=== PATIENT | female | born 1960 | race Caucasian/White ===

== ENCOUNTER 2019-08-09 00:18 | Day surgery (SDC) | payer BC, SELFPAY ==
[2019-07-27 10:06] VITALS: BMI 35.2
[2019-08-09] VITALS (7 sets, daily range): BP systolic 116–145; BP diastolic 65–92; PULSE 62–76; RESP 12–19; TEMP 36.4–36.5; O2SAT 94–99
--- NOTE | ~2019-08-09 | MM_ITS ---
EXAMINATION: MM needle loc LT, MM surgical specimen LT, MM needle loc LT ea add DATE: 08/09/2019 09:01 (accession [id number]), 08/09/2019 11:29 (accession [id number]), 07/23 09:27 (accession [id number]) INDICATION: Left breast cancer TECHNIQUE: The procedure for a mammography-guided needle localization was discussed with the patient. Risks and benefits were detailed including risks of bleeding and infection. The patient verbalized u nderstanding and agreed to proceed. A time out was performed to verify the patient's name, date of , and site of procedure. The biop sy marker appears to be slightly posterior and medial to the mammographic mass. Therefore two adjacen t localization wires were placed, one adjacent to the biopsy marker in one adjacent to a small mass. The patient was placed in craniocaudal compression, and the skin overlying the upper left breast was prepared in usual fashion. The skin and subcutaneous soft tissues were infiltrated with 1% lidocaine for local anesthesia. Utilizing mammography guidance, a needle was advanced into the left breast wit hin the mass and adjacent to the biopsy marker. Two confirmatory films were obtained. The patient kimberly erated procedure without immediate complication. A specimen radiograph was performed. FINDINGS: Two view confirmatory films of the left breast demonstrate a needle with tip adjacent to bi opsy marker and the left breast mass. The biopsy marker and wires are contained within the surgical s pecimen. IMPRESSION: 1. Successful mammography-guided left breast needle localization. Reviewed, dictated and finalized at location A. LE GREETER IMPRESSION: 1. Successful mammography-guided left breast needle localization. IMPRESSION: 1. Successful mammography-guided left breast needle localization.
--- NOTE | ~2019-08-09 | NM_ITS ---
EXAMINATION: NM sentinel node inject only INDICATION: Left breast cancer TECHNIQUE: 1.1 mCi Tc 99m Lymphoseek were injected in 4 aliquots in the upper outer quadrant of the b reast near the areola. No images were obtained. IMPRESSION: 1. Status post left breast sentinel lymph node radiopharmaceutical injection. Reviewed, dictated and finalized at location A. CAL FEE CLERK
--- NOTE | 2019-08-09 07:05 | WPDHPUPDATE1 ---
History and Physical Update Update Date/Time: 08/09/19 07:05 History and Physical has been reviewed, including an updated exam of the patient. There are NO changes in the patient's condition. Risks, benefits, and alternatives have been discussed and questions answered. Patient agrees to proceed with procedure.
[2019-08-09] MEDS: LACTATED RINGERS 1,000 ML 30 ML IV CONT ×2 (09:05→11:56)
--- NOTE | 2019-08-09 09:05 | WPDANESEPPF ---
Anes - Initial Pre Proc Eval Procedure: Operation Date: 08/09/19 09:30 Proposed Procedures p Mammogram And/Or Ultrasound Guided Needle Localization Left Breast Lumpectomy, With Left Axillary [place] Lymph Node Biopsy - Daryn Galindo MD Date/Time: 08/09/19 09:05 Surgeon: Daryn Galindo MD Pre Op Diagnosis: Left Breast Ca Patient Data Age: 58 Gender: F Height: 5 ft 4 in Weight: 90.3 kg Allergies Allergy/AdvReac Type Severity Reaction Status Date / Time No Known Allergies Allergy Verified 07/27/19 10:08 Home Medications Medication Instructions Recorded Confirmed Type ascorbic dcjz-mjwbxima-xwl 1,000 mg PO DAILY 07/27/19 08/09/19 History [Emergen-C] hmoflcqxqudn-zzpd-lkrix acid 1 tablet PO DAILY 08/09/19 08/09/19 History [Centrum Women] Patient hx anesthesia problems: none Family hx anesthesia problems: none PMFSH Surgical History Surgical History History of colonoscopy History of gastric bypass History of removal of cyst ovarian 08/20/98 Status post biopsy of kidney Family History Family History Mother Hypertension Diabetes mellitus Heart disease Sibling Chemical dependency Social History Social History Smoking status: Never smoker Substance use: current Anes - Eval Final PreProcedure Day of Procedure 08/09/19 09:05 Patient weight: obese Heart: regular rate and rhythm Lungs: clear to auscultation Airway: Mallampati scale class II Neurological: alert and oriented Last oral intake: >/= 8 hours ASA classification: III Emergent: no Anesthetic plan: proceed Anesthesia type and monitoring: general LMA and standard monitoring Informed Consent: The patient's anesthetic plan and its attendant risks and benefits were discussed with the patient/family/POA. Questions were solicited and answers provided to the satisfaction of the patient/family/POA.
[2019-08-09] MEDS: ceFAZolin 2 GM/D5W 50 ML 2 GM/50 ML BAG IVPB (09:17)
[2019-08-09] MEDS: ISOSULFAN BLUE 1% INJ 5 ML VIAL SUB-Q (09:43)
[2019-08-09] MEDS: KETOROLAC 30 MG/ML VIAL (*BKC) IV PUSH (11:34)
--- NOTE | 2019-08-09 11:45 | PM.PROC ---
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 She also had injection of radioisotope for sentinel lymph node biopsy. She was taken to surgery and and induced into general anesthesia. The left breast, axilla and arm were prepped and draped such that the arm was mobile and in the field. Care was taken to avoid any displacement of localizing wires. Isosulfan Blue dye was infiltrated under the nipple. Gentle breast massage was carried out. Using the navigator, an area of high isotope emission in the left axilla was found. This was marked on the skin. A hairline lower axillary incision was then made. Dissection through the subcutaneous fat and into the axillary contents was carried out with the cautery. We then rechecked with the navigator and found the area where the isotope emission was coming. Dissection in that direction allowed us to find sentinel lymph node #1. This lymph node had high isotope emission as well as being stained with the Isosulfan Blue dye. It was dissected free from surrounding vascular and lymphatic structures. Clips and cautery were used. The specimen was sent to pathology fresh labeled sentinel lymph node 1. In a similar fashion, we found and dissected two other sentinel lymph nodes. During the dissection of sentinel lymph node #2, another small lymph node was removed. It did not have high isotope emission. Neither sentinel lymph node #2 or #3 had blue dye staining. They were nonetheless sent as sentinel lymph nodes due to their high isotope emission. The additional lymph node found with sentinel lymph node #2 was sent as an additional axillary lymph node, not a sentinel node. None of the lymph nodes were particularly enlarged. We then checked the axillary wound and achieved good hemostasis. The wound was closed in layers with interrupted 3 0 Monocryl skin suture. A subcuticular interrupted 3 0 Monocryl skin stitch was placed. The skin was then closed with a running 4 0 Monocryl skin suture. The axilla was then quarantined with some towels. We turned our attention to the left breast. The proposed incision was marked in a rather transverse orientation above the nipple but below the exit of both localizing wires. Incision was made and dissection through the superficial subcutaneous was carried out. I noticed a firm area about 1 cm deep that was suspicious for the tumor or at least a desmoplastic reaction associated with the tumor. I dissected above this and dissected up to the localizing wire. The wire to the tumor was pulled through the skin and out the wound. Similarly, I dissected to the more medially placed wire that localized the metallic clip. It was likewise pulled through the skin and brought out the wound. From there I was able to complete the lumpectomy, dissecting all around the area suspicious for the tumor. After I removed the lumpectomy specimen, I kept it oriented so that we could place suture of different color to orient the breast tissue for the pathologist. The specimen mammogram I reviewed personally and did appear to contain both the clip and the tumor. After the lumpectomy specimen was sent, I did go ahead and remove more breast tissue for additional margins. The medial and deep margins appeared to be quite adequate from the initial lumpectomy. I did re-excise the superficial, cephalad, caudal, and lateral margins to hopefully achieve a successful lumpectomy with clear margins. All these re-excision margin specimens were sent labeled appropriately to the pathologist. The breast wound was then inspected and made meticulously hemostatic with the cautery. This wo
== END 2019-08-09 13:45 | disposition home or self-care (01) ==
PROVIDERS: PCP Internal Medicine; Visit Provider Surgery
PROC: (CPT 19301; principal; 2019-08-09 09:30)
DX: C50.212 Malignant neoplasm of upper-inner quadrant of left female breast (principal); Z98.84 Bariatric surgery status
CPT/HCPCS: 19301; 38525; 19281; 19282; 38792; 76098; 88305; 88307; A9520; C1713; C1769; J0131; J0690; J1100; J1170; J1885; J2250; J2405; J2704; J3010; J7120

== ENCOUNTER 2019-12-02 09:42 | Outpatient (CLI) | payer BC, SELFPAY ==
[2019-12-02 09:58] LABS: Basophils Percent Auto 0.8 % (0.2-1.2); Eosinophils Absolute Auto 0.1 K/mm3 (0-0.3); Eosinophils Percent Auto 1.8 % (0-4.4); Hematocrit 42.5 % (37.0-47.0); Hemoglobin 13.8 g/dL (12.0-15.0); Immature Granulocyte Absolute 0.02 K/mm3 (0.00-0.031); Immature Granulocyte Percent A 0.4 % (0-0.5); Lymphocytes Absolute Auto 1.41 K/mm3 (0.9-3.2); Lymphocytes Percent Auto 28.2 % (18.3-44.2); Mean Corpuscular HGB Conc 32.5 g/dl (32-36); Mean Corpuscular Hemoglobin 30.8 pg (26-34); Mean Corpuscular Volume 94.9 fl (80-100); Mean Platelet Volume 9.7 fl (7.4-10.4); Monocytes Absolute Auto 0.5 K/mm3 (0.1-0.6); Neutrophils Absolute Auto 2.9 K/mm3 (1.3-6.7); Neutrophils Percent Auto 58.8 % (45.5-73.1); Platelet Count Result 263 k/mm3 (150-375); Red Blood Count 4.48 M/mm3 (4.2-5.4); Red Cell Distribution Width 13.9 % (11.5-14.5)
[2019-12-02 10:07] LABS: Blood Urea Nitrogen 11 mg/dL (8-26); Carbon Dioxide 26 mmol/L (22-30); Chloride 102 mmol/L (98-109); Estimated Glomerular Filt Rate > 60; Glucose 90 mg/dL (70-105); Sodium 140 mmol/L (138-146)
[2019-12-02 10:50] LABS: Alanine Aminotransferase 22 U/L (4-35); Albumin Level 4.4 g/dL (3.5-5.1); Alkaline Phosphatase 58 U/L (38-126); Aspartate Amino Transferase 27 U/L (14-36); Bilirubin,Total 0.4 mg/dL (0.2-1.3); Blood Urea Nitrogen 12 mg/dL (7-17); Calcium 9.3 mg/dL (8.4-10.2); Carbon Dioxide 27 mmol/L (22-30); Chloride 103 mmol/L (98-107); Estimated Glomerular Filt Rate > 60; Glucose 90 mg/dL (65-105); Potassium 4.4 mmol/L (3.4-5.0); Sodium 137 mmol/L (137-145)
== END 2019-12-02 09:43 | disposition home or self-care (01) ==
LOC: ANHLAB 09:45
PROVIDERS: PCP Internal Medicine; Visit Provider Internal Medicine Hematology & Oncology
DX: C50.412 Malignant neoplasm of upper-outer quadrant of left female breast (principal); Z17.0 Estrogen receptor positive status [ER+]
CPT/HCPCS: 36415; 80048; 80053; 85025

== ENCOUNTER 2020-02-14 08:21 | Outpatient (CLI) | payer BC, SELFPAY ==
[2020-02-14 08:41] LABS: Basophils Absolute Auto 0.1 K/mm3 (0.0-0.1); Eosinophils Absolute Auto 0.1 K/mm3 (0-0.3); Eosinophils Percent Auto 1.4 % (0-4.4); Hematocrit 40.4 % (37.0-47.0); Hemoglobin 13.2 g/dL (12.0-15.0); Immature Granulocyte Absolute 0.03 K/mm3 (0.00-0.031); Immature Granulocyte Percent A 0.6 % (0-0.5); Lymphocytes Absolute Auto 1.15 K/mm3 (0.9-3.2); Lymphocytes Percent Auto 23.7 % (18.3-44.2); Mean Corpuscular HGB Conc 32.7 g/dl (32-36); Mean Corpuscular Hemoglobin 30.5 pg (26-34); Mean Corpuscular Volume 93.3 fl (80-100); Mean Platelet Volume 10.2 fl (7.4-10.4); Monocytes Absolute Auto 0.6 K/mm3 (0.1-0.6); Monocytes Percent Auto 13.2 % (2.6-8.5); Neutrophils Absolute Auto 2.9 K/mm3 (1.3-6.7); Neutrophils Percent Auto 60.1 % (45.5-73.1); Platelet Count Result 254 k/mm3 (150-375); Red Blood Count 4.33 M/mm3 (4.2-5.4); Red Cell Distribution Width 13.5 % (11.5-14.5); White Blood Count 4.9 K/mm3 (4.5-10.0)
[2020-02-14 11:55] LABS: Alanine Aminotransferase 24 U/L (4-35); Albumin Level 4.1 g/dL (3.5-5.1); Alkaline Phosphatase 61 U/L (38-126); Anion Gap 7 mmol/L (8-16); Aspartate Amino Transferase 28 U/L (14-36); Bilirubin,Total 0.4 mg/dL (0.2-1.3); Blood Urea Nitrogen 14 mg/dL (7-17); Calcium 9.4 mg/dL (8.4-10.2); Carbon Dioxide 28 mmol/L (22-30); Chloride 103 mmol/L (98-107); Estimated Glomerular Filt Rate > 60; Glucose 101 mg/dL (65-105); Potassium 4.1 mmol/L (3.4-5.0); Sodium 138 mmol/L (137-145)
[2020-02-17 13:42] LABS: CA 27.29 <8 U/mL (<38)
== END 2020-02-14 08:22 | disposition home or self-care (01) ==
LOC: ANHLAB 08:22
PROVIDERS: PCP Internal Medicine; Visit Provider Internal Medicine Hematology & Oncology
DX: C50.412 Malignant neoplasm of upper-outer quadrant of left female breast (principal); Z17.0 Estrogen receptor positive status [ER+]
CPT/HCPCS: 36415; 80053; 85025; 86300

== ENCOUNTER 2020-05-29 14:02 | Outpatient (CLI) | payer BC, SELFPAY ==
[2020-05-29 14:15] LABS: Basophils Percent Auto 0.7 % (0.2-1.2); Eosinophils Absolute Auto 0.1 K/mm3 (0-0.3); Eosinophils Percent Auto 1.7 % (0-4.4); Hematocrit 41.7 % (37.0-47.0); Hemoglobin 13.4 g/dL (12.0-15.0); Immature Granulocyte Absolute 0.02 K/mm3 (0.00-0.031); Immature Granulocyte Percent A 0.3 % (0-0.5); Lymphocytes Absolute Auto 1.34 K/mm3 (0.9-3.2); Lymphocytes Percent Auto 22.4 % (18.3-44.2); Mean Corpuscular HGB Conc 32.1 g/dl (32-36); Mean Corpuscular Hemoglobin 30.5 pg (26-34); Mean Corpuscular Volume 94.8 fl (80-100); Mean Platelet Volume 9.9 fl (7.4-10.4); Monocytes Absolute Auto 0.7 K/mm3 (0.1-0.6); Neutrophils Absolute Auto 3.8 K/mm3 (1.3-6.7); Neutrophils Percent Auto 62.9 % (45.5-73.1); Platelet Count Result 243 k/mm3 (150-375)
[2020-05-29 17:07] LABS: Alanine Aminotransferase 28 U/L (4-35); Albumin Level 4.3 g/dL (3.5-5.1); Alkaline Phosphatase 59 U/L (38-126); Anion Gap 8 mmol/L (8-16); Aspartate Amino Transferase 33 U/L (14-36); Bilirubin,Total 0.4 mg/dL (0.2-1.3); Blood Urea Nitrogen 13 mg/dL (7-17); Calcium 9.7 mg/dL (8.4-10.2); Carbon Dioxide 31 mmol/L (22-30); Chloride 98 mmol/L (98-107); Estimated Glomerular Filt Rate > 60; Glucose 97 mg/dL (65-105); Potassium 4.3 mmol/L (3.4-5.0); Sodium 137 mmol/L (137-145)
[2020-06-01 14:33] LABS: CA 15-3 <1 U/mL (<32)
== END 2020-05-29 14:03 | disposition home or self-care (01) ==
LOC: ANHLAB 14:04
PROVIDERS: PCP Internal Medicine; Visit Provider Internal Medicine Hematology & Oncology
DX: C50.412 Malignant neoplasm of upper-outer quadrant of left female breast (principal); Z17.0 Estrogen receptor positive status [ER+]
CPT/HCPCS: 36415; 80053; 85025; 86300

== ENCOUNTER 2020-06-01 12:44 | Outpatient (CLI) | payer BC, SELFPAY ==
--- NOTE | ~2020-06-01 | DEXA_ITS ---
Bone Density Report Name: Valentine Quinn Age: 59 Sex: Female Ethnicity: White Date of : 1960 Indication: postmenopausal; cancer; Referring Provider: Mike Jang Study: Bone densitometry was performed. Exam Date: June 01, 2020 Accession number: [id number] Bone Density: Region BMD T-score Z-score Classification AP Spine (L1-L4) 1.224 1.6 2.9 Normal Femoral Neck (Left) 0.734 -1.0 0.2 Normal Total Hip (Left) 0.989 0.4 1.3 Normal Total Hip Bilateral Avg 0.979 0.3 1.2 Normal Femoral Neck (Right) 0.716 -1.2 0.0 Osteopenia Total Hip (Right) 0.967 0.2 1.1 Normal World Health Organization criteria for BMD impression classify patients as: Normal (T-score at or above -1.0), Osteopenia (T-score between -1.0 and -2.5), or Osteoporosis (T-score at or below -2.5). 10-year Fracture Risk(1): Major Osteoporotic Fracture 6.5% Hip Fracture 0.4% Reported Risk Factors: [place] (), Neck BMD=0.716, BMI=34.7 (1) FRAX(R) Version 3.08. Fracture probability calculated for an untreated patient. Fracture probability may be lower if the patient has received treatment. Clinical Information Provided by Patient: Has used the following medications: Calcium Has the following medical conditions: Cancer Patient maximum height was 64 Menopause Age: 51 No regular weight bearing exercise Drinks caffeinated beverages Onset of menses at age 14 Number of children 0 Impression: The patient has low bone mass, based on the Right Femoral Neck T-score. The patient has an estimated ten-year risk of hip fracture of 0.4% and an estimated ten-year risk of major fracture of 6.5%, based on the WHO FRAX algorithm. Discussion: BONE DENSITY IS LOW AT ONE OR MORE SKELETAL SITES. This patient's lowest T-score is low at one or more skeletal sites. It meets the World Health Organization's (WHO) criteria for ?low bone mass? (T-score between -1.0 and -2.5). The patient's 10-year risk of fracture as calculated by FRAX is less than the threshold where pharmacological therapy is recommended by the National Osteoporosis Foundation (NOF). However, all treatment decisions require clinical judgment and consideration of individual patient factors, including patient preferences, comorbidities, previous drug use, risk factors not captured in the FRAX model (e.g., frailty, falls, vitamin D deficiency, increased bone turnover, interval significant decline in bone density) and possible under or overestimation of fracture risk by FRAX. The patient should follow a healthful lifestyle (good nutrition with adequate calcium and vitamin D, and appropriate weight-bearing exercise). Follow-Up: Consider repeating this study in 2 to 3 years to reassess this patient's status, or sooner if there is some new clinical indication. Reported by: MIKE on
--- NOTE | ~2020-06-01 | MMUS_ITS ---
EXAMINATION: MM diagnostic red BI w estephania, US breast LT complete HISTORY: History of left breast cancer status post surgery and radiation therapy TECHNIQUE: Additional 3-D tomosynthesis images of the breasts were performed and synthetic 2-D images were generated. CAD analysis was submitted and interpreted. High resolution left breast ultrasound w as performed. COMPARISON: Comparison to multiple prior studies sequentially, with oldest reviewed study dated 03/22. BREAST PARENCHYMAL COMPOSITION: Breast composed of scattered areas of fibroglandular density. FINDINGS: MAMMOGRAPHIC FINDINGS: The right breast is stable without evidence for malignancy. There is focal asymmetry central aspect o f the left breast with spiculation which has developed since previous lumpectomy. Left breast ultrasound: In the area of surgical scar at 11-12:00 position there is an irregular shape d hypoechoic mass measuring 1.9 x 1.6 x 1.9 cm with posterior shadowing. No other masses are identifi ed. IMPRESSION: 1. Abnormal spiculated mass corresponding hypoechoic abnormality by ultrasound measuring up to 1.9 cm , most likely postsurgical/radiation therapy change. 2. Recommend 6 month follow-up diagnostic left mammogram with possible additional ultrasound BI-RADS category 3, probably benign findings. Reviewed, dictated and finalized at location A. OLOGY TEACHER IMPRESSION: 1. Abnormal spiculated mass corresponding hypoechoic abnormality by ultrasound measuring up to 1.9 cm, most likely postsurgical/radiation therapy change. 2. Recommend 6 month follow-up diagnostic left mammogram with possible addition al ultrasound BI-RADS category 3, probably benign findings.
== END 2020-06-01 12:45 | disposition home or self-care (01) ==
PROVIDERS: PCP Internal Medicine; Visit Provider Internal Medicine Hematology & Oncology
DX: C50.412 Malignant neoplasm of upper-outer quadrant of left female breast (principal); M85.851 Other specified disorders of bone density and structure, right thigh; Z17.0 Estrogen receptor positive status [ER+]; N63.22 Unspecified lump in the left breast, upper inner quadrant
CPT/HCPCS: 76641; 77062; 77066; 77080; G0279

== ENCOUNTER 2020-08-22 08:46 | Outpatient (CLI) | payer BC, SELFPAY ==
[2020-08-22 09:02] LABS: Basophils Absolute Auto 0.1 K/mm3 (0.0-0.1); Basophils Percent Auto 1.1 % (0.2-1.2); Eosinophils Absolute Auto 0.1 K/mm3 (0-0.3); Eosinophils Percent Auto 1.8 % (0-4.4); Hematocrit 41.9 % (37.0-47.0); Hemoglobin 13.8 g/dL (12.0-15.0); Immature Granulocyte Absolute 0.05 K/mm3 (0.00-0.031); Immature Granulocyte Percent A 0.9 % (0-0.5); Lymphocytes Absolute Auto 1.64 K/mm3 (0.9-3.2); Lymphocytes Percent Auto 29.9 % (18.3-44.2); Mean Corpuscular HGB Conc 32.9 g/dl (32-36); Mean Corpuscular Hemoglobin 31.1 pg (26-34); Mean Corpuscular Volume 94.4 fl (80-100); Mean Platelet Volume 10.2 fl (7.4-10.4); Monocytes Absolute Auto 0.6 K/mm3 (0.1-0.6); Monocytes Percent Auto 11.5 % (2.6-8.5); Neutrophils Percent Auto 54.8 % (45.5-73.1); Platelet Count Result 268 k/mm3 (150-375); Red Blood Count 4.44 M/mm3 (4.2-5.4); Red Cell Distribution Width 13.2 % (11.5-14.5); White Blood Count 5.5 K/mm3 (4.5-10.0)
[2020-08-22 12:15] LABS: Alanine Aminotransferase 22 U/L (4-35); Albumin Level 4.3 g/dL (3.5-5.1); Alkaline Phosphatase 61 U/L (38-126); Anion Gap 9 mmol/L (8-16); Aspartate Amino Transferase 30 U/L (14-36); Bilirubin,Total 0.4 mg/dL (0.2-1.3); Blood Urea Nitrogen 16 mg/dL (7-17); Calcium 9.4 mg/dL (8.4-10.2); Carbon Dioxide 30 mmol/L (22-30); Chloride 101 mmol/L (98-107); Estimated Glomerular Filt Rate > 60; Glucose 101 mg/dL (65-105); Potassium 4.7 mmol/L (3.4-5.0); Sodium 140 mmol/L (137-145)
[2020-08-25 07:29] LABS: CA 15-3 3 U/mL (<32)
== END 2020-08-22 08:47 | disposition home or self-care (01) ==
LOC: ANHLAB 08:48
PROVIDERS: PCP Internal Medicine; Visit Provider Internal Medicine Hematology & Oncology
DX: C50.412 Malignant neoplasm of upper-outer quadrant of left female breast (principal); Z17.0 Estrogen receptor positive status [ER+]
CPT/HCPCS: 36415; 80053; 85025; 86300

== ENCOUNTER 2020-09-13 07:43 | Outpatient (CLI) | payer BC, SELFPAY ==
--- NOTE | ~2020-09-13 | CT_ITS ---
EXAMINATION: CT soft tissue neck chest w EXAM DATE: 09/13/2020 08:35 INDICATION: Lymphadenopathy of head and neck. TECHNIQUE: Spiral CT of the neck and chest was performed following intravenous injection of 75 mL Omn ipaque 350. Axial, coronal and sagittal images of the neck were reviewed. Axial, coronal and sagitt al images of the chest were reviewed. Coronal maximum intensity pixel images of chest reviewed. The dose-length product (DLP) for this examination was 971.33 mGy-cm. The exposure was tailored accordi ng to patient size (auto mA exposure control), and iterative reconstruction (ASIR) was used as additi onal dose reduction technique. There is no prior study for comparison. FINDINGS: NECK: The thyroid gland is unremarkable. The submandibular and parotid glands are symmetric. Severa l small lymph nodes left posterior cervical triangle well within normal size limits. There is no cerv ical lymphadenopathy. There are no masses identified. The airway is unremarkable. Parapharyngea l and pre-glottic fat planes are preserved. The opacified vasculature is patent. The orbits are u nremarkable. Visualized sinuses and mastoid air cells are well aerated. There is cervical spondyl osis. CHEST: There is a spiculated masslike region in the left breast measuring about 2.5 cm. Reportedly donna salinas did have left breast cancer. There is no biopsy marker identified within this. There are left a xillary surgical clips. Ascending aorta is upper limits of normal in caliber. The lungs are clear. There are no pleural or pericardial effusions. Tracheobronchial tree is patent. There is no media stinal, hilar or axillary lymphadenopathy. There is no pneumothorax. Borderline cardiomegaly. Th ere is mild coronary arterial calcification, arterial sclerosis. Surgical changes of gastric bypass. There is mild thoracic spondylosis without osteoblastic or osteolytic lesions identified. IMPRESSION: 1. Spiculated left breast mass suspicious for cancer, or possibly scarring. Should be correlated wit h repeat mammography. 2. No axillary, internal mammary, cervical or mediastinal lymphadenopathy. Reviewed, dictated and finalized at location A. IMPRESSION: 1. Spiculated left breast mass suspicious for cancer, or possibly scarring. Sh ould be correlated with repeat mammography. 2. No axillary, internal mammary, cervical or mediastinal lymphadenopathy.
== END 2020-09-13 07:44 | disposition home or self-care (01) ==
LOC: ANHIMG 07:45
PROVIDERS: PCP Internal Medicine; Visit Provider Internal Medicine Hematology & Oncology
DX: R59.1 Generalized enlarged lymph nodes (principal); M47.814 Spondylosis without myelopathy or radiculopathy, thoracic region; I70.90 Unspecified atherosclerosis; I25.10 Atherosclerotic heart disease of native coronary artery without angina pectoris
CPT/HCPCS: 70491; 71260; Q9967

== ENCOUNTER 2020-10-12 11:42 | Outpatient (CLI) | payer BC, SELFPAY ==
--- NOTE | ~2020-10-12 | MMUS_ITS ---
EXAMINATION: MM diagnostic red BI w estephania, US breast LT limited HISTORY: Patient with history of left breast cancer presents for evaluation of a possible left breast mass seen on CT TECHNIQUE: Craniocaudal, mediolateral, and mediolateral oblique 3-D tomosynthesis images of the breas ts were performed and synthetic 2-D images were generated. CAD analysis was submitted and interpreted . High resolution limited left breast ultrasound was performed. COMPARISON: 09/13/2020, 06/01/2020, 05/31/2019, 05/09/2019, 04/02/2018 BREAST PARENCHYMAL COMPOSITION: There are scattered areas of fibroglandular density. FINDINGS: MAMMOGRAPHIC FINDINGS: Left breast: There is stable architectural distortion in the upper left breast at the site of prior l umpectomy. No suspicious interval change is identified. There is no suspicious calcification. Right breast: There is no evidence of suspicious mass, calcification, or architectural distortion to suggest malignancy. There has been no suspicious interval change. ULTRASOUND: There is stable sonographic changes in the left breast reflecting patient's lumpectomy. No suspicious interval change is identified. IMPRESSION: 1. Stable left breast findings most consistent with treatment for left breast cancer. No mammographic evidence of malignancy in the right breast. 2. Recommend 6 month follow-up left diagnostic mammogram and possible ultrasound and routine screenin g mammography of the right breast. BI-RADS category 3, probably benign findings. Reviewed, dictated and finalized at location A. IMPRESSION: 1. Stable left breast findings most consistent with treatment for left breast c ancer. No mammographic evidence of malignancy in the right breast. 2. Recommend 6 month follow-up left diagnostic mammogram and possible ultrasoun d and routine screening mammography of the right breast. BI-RADS category 3, probably benign findings.
== END 2020-10-12 11:43 | disposition home or self-care (01) ==
LOC: ANHIMG 11:49
PROVIDERS: PCP Internal Medicine; Visit Provider Internal Medicine Hematology & Oncology
DX: C50.412 Malignant neoplasm of upper-outer quadrant of left female breast (principal); Z17.0 Estrogen receptor positive status [ER+]; R92.8 Other abnormal and inconclusive findings on diagnostic imaging of breast
CPT/HCPCS: 76642; 77062; 77066; G0279

== ENCOUNTER 2020-11-23 11:02 | Outpatient (CLI) | payer BC, SELFPAY ==
[2020-11-23 11:26] LABS: Basophils Percent Auto 0.6 % (0.2-1.2); Eosinophils Absolute Auto 0.2 K/mm3 (0-0.3); Eosinophils Percent Auto 2.4 % (0-4.4); Hematocrit 42.8 % (37.0-47.0); Hemoglobin 13.8 g/dL (12.0-15.0); Immature Granulocyte Absolute 0.04 K/mm3 (0.00-0.031); Immature Granulocyte Percent A 0.6 % (0-0.5); Lymphocytes Absolute Auto 1.26 K/mm3 (0.9-3.2); Lymphocytes Percent Auto 17.9 % (18.3-44.2); Mean Corpuscular HGB Conc 32.2 g/dl (32-36); Mean Corpuscular Hemoglobin 30.5 pg (26-34); Mean Corpuscular Volume 94.7 fl (80-100); Monocytes Absolute Auto 0.7 K/mm3 (0.1-0.6); Monocytes Percent Auto 10.1 % (2.6-8.5); Neutrophils Absolute Auto 4.8 K/mm3 (1.3-6.7); Neutrophils Percent Auto 68.4 % (45.5-73.1); Platelet Count Result 242 k/mm3 (150-375); Red Blood Count 4.52 M/mm3 (4.2-5.4); Red Cell Distribution Width 14.2 % (11.5-14.5); White Blood Count 7.1 K/mm3 (4.5-10.0)
[2020-11-23 12:23] LABS: Alanine Aminotransferase 26 U/L (4-35); Albumin Level 4.2 g/dL (3.5-5.1); Alkaline Phosphatase 68 U/L (38-126); Anion Gap 9 mmol/L (8-16); Aspartate Amino Transferase 29 U/L (14-36); Bilirubin,Total 0.6 mg/dL (0.2-1.3); Blood Urea Nitrogen 21 mg/dL (7-17); Calcium 9.6 mg/dL (8.4-10.2); Carbon Dioxide 27 mmol/L (22-30); Chloride 102 mmol/L (98-107); Estimated Glomerular Filt Rate > 60; Glucose 97 mg/dL (65-105); Lactate Dehydrogenase 437 U/L (313-618); Potassium 4.5 mmol/L (3.4-5.0); Sodium 138 mmol/L (137-145)
[2020-11-25 22:31] LABS: CA 15-3 3 U/mL (<32)
== END 2020-11-23 11:03 | disposition home or self-care (01) ==
LOC: ANHLAB 11:11
PROVIDERS: PCP Internal Medicine; Visit Provider Internal Medicine Hematology & Oncology
DX: C50.412 Malignant neoplasm of upper-outer quadrant of left female breast (principal); Z17.0 Estrogen receptor positive status [ER+]
CPT/HCPCS: 36415; 80053; 83615; 85025; 86300

== ENCOUNTER 2021-03-15 09:06 | Outpatient (CLI) | payer BC, SELFPAY ==
[2021-03-15 09:20] LABS: Basophils Percent Auto 0.5 % (0.2-1.2); Eosinophils Absolute Auto 0.2 K/mm3 (0-0.3); Eosinophils Percent Auto 2.4 % (0-4.4); Hemoglobin 13.7 g/dL (12.0-15.0); Immature Granulocyte Absolute 0.08 K/mm3 (0.00-0.031); Immature Granulocyte Percent A 1.1 % (0-0.5); Lymphocytes Absolute Auto 1.54 K/mm3 (0.9-3.2); Lymphocytes Percent Auto 20.5 % (18.3-44.2); Mean Corpuscular HGB Conc 32.6 g/dl (32-36); Mean Corpuscular Hemoglobin 30.3 pg (26-34); Mean Corpuscular Volume 92.9 fl (80-100); Mean Platelet Volume 10.2 fl (7.4-10.4); Monocytes Absolute Auto 0.7 K/mm3 (0.1-0.6); Monocytes Percent Auto 9.7 % (2.6-8.5); Neutrophils Percent Auto 65.8 % (45.5-73.1); Platelet Count Result 306 k/mm3 (150-375); Red Blood Count 4.52 M/mm3 (4.2-5.4); Red Cell Distribution Width 13.3 % (11.5-14.5); White Blood Count 7.5 K/mm3 (4.5-10.0)
[2021-03-15 11:25] LABS: Alanine Aminotransferase 27 U/L (4-35); Albumin Level 4.7 g/dL (3.5-5.1); Alkaline Phosphatase 67 U/L (38-126); Anion Gap 8 mmol/L (8-16); Aspartate Amino Transferase 41 U/L (14-36); Bilirubin,Total 0.4 mg/dL (0.2-1.3); Blood Urea Nitrogen 18 mg/dL (7-17); Calcium 10.1 mg/dL (8.4-10.2); Carbon Dioxide 28 mmol/L (22-30); Chloride 102 mmol/L (98-107); Estimated Glomerular Filt Rate > 60; Glucose 107 mg/dL (65-110); Potassium 4.5 mmol/L (3.4-5.0); Sodium 138 mmol/L (137-145)
[2021-03-19 07:31] LABS: CA 15-3 4 U/mL (<32)
== END 2021-03-15 09:07 | disposition home or self-care (01) ==
LOC: ANHLAB 09:09
PROVIDERS: PCP Internal Medicine; Visit Provider Internal Medicine Hematology & Oncology
DX: C50.412 Malignant neoplasm of upper-outer quadrant of left female breast (principal); Z17.0 Estrogen receptor positive status [ER+]
CPT/HCPCS: 36415; 80053; 85025; 86300

== ENCOUNTER 2021-07-19 09:39 | Outpatient (CLI) | payer BC, SELFPAY ==
[2021-07-19 09:53] LABS: Basophils Absolute Auto 0.1 K/mm3 (0.0-0.1); Basophils Percent Auto 0.7 % (0.2-1.2); Eosinophils Absolute Auto 0.2 K/mm3 (0-0.3); Eosinophils Percent Auto 3.5 % (0-4.4); Hematocrit 43.4 % (37.0-47.0); Hemoglobin 13.5 g/dL (12.0-15.0); Immature Granulocyte Absolute 0.04 K/mm3 (0.00-0.031); Immature Granulocyte Percent A 0.6 % (0-0.5); Lymphocytes Absolute Auto 1.97 K/mm3 (0.9-3.2); Lymphocytes Percent Auto 28.8 % (18.3-44.2); Mean Corpuscular HGB Conc 31.1 g/dl (32-36); Mean Corpuscular Hemoglobin 29.6 pg (26-34); Mean Corpuscular Volume 95.2 fl (80-100); Mean Platelet Volume 9.9 fl (7.4-10.4); Monocytes Absolute Auto 0.8 K/mm3 (0.1-0.6); Monocytes Percent Auto 11.1 % (2.6-8.5); Neutrophils Absolute Auto 3.8 K/mm3 (1.3-6.7); Neutrophils Percent Auto 55.3 % (45.5-73.1); Platelet Count Result 318 k/mm3 (150-375); Red Blood Count 4.56 M/mm3 (4.2-5.4); White Blood Count 6.8 K/mm3 (4.5-10.0)
[2021-07-19 13:22] LABS: Alanine Aminotransferase 22 U/L (4-35); Albumin Level 4.3 g/dL (3.5-5.1); Alkaline Phosphatase 73 U/L (38-126); Anion Gap 3 mmol/L (8-16); Aspartate Amino Transferase 45 U/L (14-36); Bilirubin,Total 0.5 mg/dL (0.2-1.3); Blood Urea Nitrogen 15 mg/dL (7-17); Calcium 9.4 mg/dL (8.4-10.2); Carbon Dioxide 31 mmol/L (22-30); Chloride 102 mmol/L (98-107); Estimated Glomerular Filt Rate > 60; Glucose 103 mg/dL (65-110); Potassium 4.4 mmol/L (3.4-5.0); Sodium 136 mmol/L (137-145)
[2021-07-24 07:09] LABS: CA 15-3 5 U/mL (<32)
== END 2021-07-19 09:40 | disposition home or self-care (01) ==
LOC: ANHLAB 09:40
PROVIDERS: PCP Internal Medicine; Visit Provider Internal Medicine Hematology & Oncology
DX: C50.412 Malignant neoplasm of upper-outer quadrant of left female breast (principal); Z17.0 Estrogen receptor positive status [ER+]
CPT/HCPCS: 36415; 80053; 85025; 86300

== ENCOUNTER 2021-10-04 11:31 | Outpatient (CLI) | payer BC, SELFPAY ==
--- NOTE | ~2021-10-04 | MM_ITS ---
EXAMINATION: MM diagnostic red BI w estephania HISTORY: History of left breast cancer status post lumpectomy and radiation therapy in 2019 TECHNIQUE: Additional 3-D tomosynthesis images of the breasts were performed and synthetic 2-D images were generated. CAD analysis was submitted and interpreted. COMPARISON: Comparison to multiple prior studies sequentially, with oldest reviewed study dated 05/22. BREAST PARENCHYMAL COMPOSITION: There are scattered areas of fibroglandular density. FINDINGS: The breasts are stable. No significant change to spiculated left breast mass in the upper c entral aspect of the left breast posteriorly. No new masses, calcifications or architectural distorti on to suggest malignancy. IMPRESSION: 1. Stable bilateral mammogram. No significant change to spiculated left breast mass, consistent with previous lumpectomy/radiation therapy change. 2. Routine yearly screening mammogram and regular clinical breast examination are recommended. BI-RADS Category 2: Benign finding(s). Reviewed, dictated and finalized at location A. IMPRESSION: 1. Stable bilateral mammogram. No significant change to spiculated left breast mass, consistent with previous lumpectomy/radiation therapy change. 2. Routine yearly screening mammogram and regular clinical breast examination a re recommended. BI-RADS Category 2: Benign finding(s).
== END 2021-10-04 11:32 | disposition home or self-care (01) ==
LOC: ANHIMG 11:32
PROVIDERS: PCP Internal Medicine; Visit Provider Internal Medicine Hematology & Oncology
DX: C50.412 Malignant neoplasm of upper-outer quadrant of left female breast (principal); Z17.0 Estrogen receptor positive status [ER+]
CPT/HCPCS: 77062; 77066; G0279

== ENCOUNTER 2021-12-13 08:30 | Outpatient (CLI) | payer BC, SELFPAY ==
[2021-12-13 08:53] LABS: Basophils Absolute Auto 0.1 K/mm3 (0.0-0.1); Basophils Percent Auto 1.1 % (0.2-1.2); Eosinophils Absolute Auto 0.1 K/mm3 (0-0.3); Eosinophils Percent Auto 2.3 % (0-4.4); Hematocrit 42.7 % (37.0-47.0); Hemoglobin 13.7 g/dL (12.0-15.0); Immature Granulocyte Absolute 0.03 K/mm3 (0.00-0.031); Immature Granulocyte Percent A 0.5 % (0-0.5); Lymphocytes Absolute Auto 1.52 K/mm3 (0.9-3.2); Lymphocytes Percent Auto 26.9 % (18.3-44.2); Mean Corpuscular HGB Conc 32.1 g/dl (32-36); Mean Corpuscular Hemoglobin 29.6 pg (26-34); Mean Corpuscular Volume 92.2 fl (80-100); Mean Platelet Volume 10.2 fl (7.4-10.4); Monocytes Absolute Auto 0.6 K/mm3 (0.1-0.6); Monocytes Percent Auto 9.9 % (2.6-8.5); Neutrophils Absolute Auto 3.4 K/mm3 (1.3-6.7); Neutrophils Percent Auto 59.3 % (45.5-73.1); Platelet Count Result 275 k/mm3 (150-375); Red Blood Count 4.63 M/mm3 (4.2-5.4); Red Cell Distribution Width 13.5 % (11.5-14.5); White Blood Count 5.7 K/mm3 (4.5-10.0)
[2021-12-13 13:25] LABS: Alanine Aminotransferase 21 U/L (6-35); Albumin Level 4.1 g/dL (3.5-5.1); Alkaline Phosphatase 63 U/L (38-126); Anion Gap 7 mmol/L (8-16); Aspartate Amino Transferase 25 U/L (14-36); Bilirubin,Total 0.3 mg/dL (0.2-1.3); Blood Urea Nitrogen 18 mg/dL (7-17); Carbon Dioxide 28 mmol/L (22-30); Chloride 103 mmol/L (98-107); Estimated Glomerular Filt Rate > 60; Glucose 103 mg/dL (65-110); Potassium 4.4 mmol/L (3.4-5.0); Sodium 138 mmol/L (137-145)
[2021-12-18 23:39] LABS: CA 15-3 4 U/mL (<32)
== END 2021-12-13 08:31 | disposition home or self-care (01) ==
LOC: ANHLAB 08:31
PROVIDERS: PCP Internal Medicine; Visit Provider Internal Medicine Hematology & Oncology
DX: C50.412 Malignant neoplasm of upper-outer quadrant of left female breast (principal); Z17.0 Estrogen receptor positive status [ER+]
CPT/HCPCS: 36415; 80053; 85025; 86300

== ENCOUNTER 2022-08-19 08:41 | Outpatient (CLI) | payer BC, SELFPAY ==
[2022-08-19 09:07] LABS: Basophils Absolute Auto 0.1 K/mm3 (0.0-0.1); Eosinophils Absolute Auto 0.3 K/mm3 (0-0.3); Eosinophils Percent Auto 5.3 % (0-4.4); Hematocrit 41.9 % (37.0-47.0); Hemoglobin 13.6 g/dL (12.0-15.0); Immature Granulocyte Absolute 0.07 K/mm3 (0.00-0.031); Immature Granulocyte Percent A 1.2 % (0-0.5); Lymphocytes Absolute Auto 1.46 K/mm3 (0.9-3.2); Lymphocytes Percent Auto 24.1 % (18.3-44.2); Mean Corpuscular HGB Conc 32.5 g/dl (32-36); Mean Corpuscular Hemoglobin 30.8 pg (26-34); Mean Platelet Volume 9.6 fl (7.4-10.4); Monocytes Absolute Auto 0.8 K/mm3 (0.1-0.6); Monocytes Percent Auto 13.7 % (2.6-8.5); Neutrophils Absolute Auto 3.3 K/mm3 (1.3-6.7); Neutrophils Percent Auto 54.7 % (45.5-73.1); Platelet Count Result 249 k/mm3 (150-375); Red Blood Count 4.41 M/mm3 (4.2-5.4); White Blood Count 6.1 K/mm3 (4.5-10.0)
[2022-08-19 09:55] LABS: Alanine Aminotransferase 32 U/L (6-35); Albumin Level 4.2 g/dL (3.5-5.1); Alkaline Phosphatase 57 U/L (38-126); Anion Gap 3 mmol/L (8-16); Aspartate Amino Transferase 52 U/L (14-36); Bilirubin,Total 0.5 mg/dL (0.2-1.3); Blood Urea Nitrogen 17 mg/dL (7-17); Calcium 9.2 mg/dL (8.4-10.2); Carbon Dioxide 31 mmol/L (22-30); Chloride 100 mmol/L (98-107); Estimated Glomerular Filt Rate > 60; Glucose 101 mg/dL (65-110); Potassium 4.2 mmol/L (3.4-5.0); Sodium 134 mmol/L (137-145)
[2022-08-24 16:02] LABS: CA 15-3 <5 U/mL (<32)
== END 2022-08-19 08:42 | disposition home or self-care (01) ==
LOC: ANHLAB 08:43
PROVIDERS: PCP Internal Medicine; Visit Provider Internal Medicine Hematology & Oncology
DX: C50.412 Malignant neoplasm of upper-outer quadrant of left female breast (principal); Z17.0 Estrogen receptor positive status [ER+]
CPT/HCPCS: 36415; 80053; 85025; 86300

== ENCOUNTER 2022-10-28 07:30 | Outpatient (CLI) | payer BC, SELFPAY ==
--- NOTE | ~2022-10-28 | MM_ITS ---
EXAMINATION: MM screening red BI w estephania HISTORY: Screening mammogram, history of left breast cancer TECHNIQUE: Craniocaudal and mediolateral oblique 3-D tomosynthesis images were obtained and synthetic 2-D images were generated. CAD analysis was submitted and interpreted. COMPARISON: 10/04/2021, 10/12/2020, 06/01/2020 BREAST PARENCHYMAL COMPOSITION: There are scattered areas of fibroglandular density. FINDINGS: Stable lumpectomy changes are noted in the left breast. No suspicious mass, calcification, or architectural distortion are identified in either breast to suggest malignancy. There has been no suspicious interval change. IMPRESSION: 1. No mammographic evidence of malignancy. 2. Recommend routine screening mammography in one year. BI-RADS Category 2: Benign finding(s). Reviewed, dictated and finalized at location A.
--- NOTE | ~2022-10-28 | DEXA_ITS ---
Bone Density Report Name: TOMAS PFEIFFER Age: 61 Sex: Female Ethnicity: White Date of : 1960 Indication: postmenopausal; screening for osteoporosis; height loss; cancer; Referring Provider: JES TEMPLETON Study: Bone densitometry was performed. Exam Date: October 28, 2022 Accession number: [id number] Bone Density: Region BMD T-score Z-score Classification AP Spine(L1-L4) 1.155 1.0 2.5 Normal Femoral Neck (Left) 0.740 -1.0 0.3 Normal Total Hip (Left) 0.977 0.3 1.3 Normal Femoral Neck (Right) 0.751 -0.9 0.4 Normal Total Hip (Right) 0.990 0.4 1.4 Normal Total Hip Mean 0.984 0.4 1.4 Normal World Health Organization criteria for BMD impression classify patients as: Normal (T-score at or above -1.0), Osteopenia (T-score between -1.0 and -2.5), or Osteoporosis (T-score at or below -2.5). 10-year Fracture Risk: FRAX not reported because: All T-scores for Spine Total, Hip Total, Femoral Neck at or above -1.0 Previous Exams: Region Exam Age BMD T-score BMD Change BMD Change Date g/cm2 vs Baseline vs Previous AP Spine (L1-L4) 10/28/2022 61 1.155 1.0 -0.069 (-5.6%) -0.069 (-5.6%) 06/01/2020 59 1.224 1.6 Total Hip(Left) 10/28/2022 61 0.977 0.3 -0.012 (-1.2%) -0.012 (-1.2%) 06/01/2020 59 0.989 0.4 Total Hip(Right) 10/28/2022 61 0.990 0.4 0.023 (2.4%) 0.023 (2.4%) 06/01/2020 59 0.967 0.2 *Denotes significance at 95% confidence level, LSC for AP Spine = 0.022 g/cm2, LSC for Total Hip = 0.027 g/cm2 Clinical Information Provided by Patient: Has used the following medications: Vitamin D, Calcium Has the following medical conditions: Cancer Patient maximum height was 64 Menopause Age: 51 Drinks caffeinated beverages Onset of menses at age 14 Number of children 0 Impression: The patient has normal bone mass. The BMD for the AP Spine (L1-L4) decreased, changing by -5.6% since the last DXA exam. Discussion: BONE DENSITY IS ABOVE THE MINIMUM DESIRABLE LEVEL AT ALL SKELETAL SITES TESTED. This patient?s bone mineral density is above the minimum desirable level (T-score -1.0 or better) at all sites measured. The patient should follow a healthful lifestyle (good nutrition with adequate calcium and vitamin D, and appropriate weight-bearing exercise). Follow-Up: Consider repeating this study in 3 to 4 years to reassess this patient's status, or sooner if there is some new clinical indication. Reported b
== END 2022-10-28 07:31 | disposition home or self-care (01) ==
LOC: ANHIMG 07:34
PROVIDERS: PCP Internal Medicine; Visit Provider Internal Medicine Hematology & Oncology
DX: Z12.31 Encounter for screening mammogram for malignant neoplasm of breast (principal); C50.412 Malignant neoplasm of upper-outer quadrant of left female breast; Z17.0 Estrogen receptor positive status [ER+]; M85.89 Other specified disorders of bone density and structure, multiple sites
CPT/HCPCS: 77063; 77067; 77080

== ENCOUNTER 2023-02-19 08:50 | Outpatient (CLI) | payer BC, SELFPAY ==
[2023-02-19 09:05] LABS: Basophils Absolute Auto 0.1 K/mm3 (0.0-0.1); Basophils Percent Auto 0.8 % (0.2-1.2); Eosinophils Absolute Auto 0.2 K/mm3 (0-0.3); Eosinophils Percent Auto 3.7 % (0-4.4); Hematocrit 41.9 % (37.0-47.0); Hemoglobin 13.7 g/dL (12.0-15.0); Immature Granulocyte Absolute 0.02 K/mm3 (0.00-0.031); Immature Granulocyte Percent A 0.3 % (0-0.5); Lymphocytes Absolute Auto 1.73 K/mm3 (0.9-3.2); Mean Corpuscular HGB Conc 32.7 g/dl (32-36); Mean Corpuscular Hemoglobin 30.6 pg (26-34); Mean Corpuscular Volume 93.5 fl (80-100); Mean Platelet Volume 9.8 fl (7.4-10.4); Monocytes Absolute Auto 0.7 K/mm3 (0.1-0.6); Monocytes Percent Auto 11.7 % (2.6-8.5); Neutrophils Absolute Auto 3.3 K/mm3 (1.3-6.7); Neutrophils Percent Auto 54.5 % (45.5-73.1); Platelet Count Result 243 k/mm3 (150-375); Red Blood Count 4.48 M/mm3 (4.2-5.4); Red Cell Distribution Width 13.2 % (11.5-14.5)
[2023-02-19 10:47] LABS: Alanine Aminotransferase 38 U/L (6-35); Albumin Level 4.3 g/dL (3.5-5.1); Alkaline Phosphatase 52 U/L (38-126); Anion Gap 5 mmol/L (8-16); Aspartate Amino Transferase 35 U/L (14-36); Bilirubin,Total 0.5 mg/dL (0.2-1.3); Blood Urea Nitrogen 19 mg/dL (7-17); Calcium 9.2 mg/dL (8.4-10.2); Carbon Dioxide 29 mmol/L (22-30); Chloride 101 mmol/L (98-107); Estimated Glomerular Filt Rate > 60; Glucose 101 mg/dL (65-110); Potassium 4.4 mmol/L (3.4-5.0); Sodium 135 mmol/L (137-145)
[2023-02-22 06:20] LABS: CA 15-3 <5 U/mL (<32)
== END 2023-02-19 08:51 | disposition home or self-care (01) ==
LOC: ANHLAB 08:52
PROVIDERS: PCP Internal Medicine; Visit Provider Internal Medicine Hematology & Oncology
DX: C50.412 Malignant neoplasm of upper-outer quadrant of left female breast (principal); Z17.0 Estrogen receptor positive status [ER+]
CPT/HCPCS: 36415; 80053; 85025; 86300

== ENCOUNTER 2023-03-02 14:49 | Emergency (ER) | payer BC, SELFPAY ==
[2023-03-02 15:35] VITALS: BP 166/73; PULSE 84; RESP 18; TEMP 36.7; O2SAT 98
[2023-03-02] MEDS: TETANUS,DIPHTHERIA,AC PERTUSSIS ADULT (0.5 ML) BOOSTRIX IM (17:53)
--- NOTE | 2023-03-02 18:50 | ED.WOUNDLAC ---
HPI - Wound/Laceration General Chief Complaint: Wound/Laceration Stated Complaint: laceration Time Seen by Provider: 03/02/23 17:53 Source: patient Mode of arrival: ambulatory Limitations: no limitations History of Present Illness HPI narrative: Patient is a 62 y/o female who presents to the ED with report of a laceration. Patient reports she was outside her house tonight and fell against a concrete landscaping brick. She sustained a large flap laceration to her right lateral lower leg. No other injuries. She did not hit her head in the fall. She has been ambulatory since the injury without issue. Denies numbness or tingling. Tetanus status unknown. She is not on any blood thinners. Related Data Home Medications Medication Instructions Recorded Confirmed ascorbic acid 1,000 1,000 mg PO DAILY 07/27/19 07/11/20 me-ciaxkyhuqdsi-jmypscbw powder effervescent pack (Emergen-C) multivitamin-ferrous 1 tablet PO DAILY 08/09/19 07/11/20 fumarate-folic acid 18 mg-400 mcg tablet (Centrum Women) anastrozole 1 mg tablet 1 mg PO DAILY 12/30/19 07/11/20 calcium carbonate 600 mg-vitamin 1 tablet PO BID 12/30/19 07/11/20 D3 20 mcg (800 unit) tablet (Caltrate with Vitamin D3) clobetasol 0.05 % scalp solution 1 applic topical BID 12/30/19 07/11/20 Allergies Allergy/AdvReac Type Severity Reaction Status Date / Time No Known Allergies Allergy Verified 03/02/23 15:40 Review of Systems Review of Systems: CONSTITUTIONAL: Denies fever, chills, or sweats. SKIN: See HPI. MUSCULOSKELETAL: Denies back pain, joint pain, or myalgia. NEUROLOGIC: Denies tingling, numbness, or weakness. All systems reviewed & are unremarkable except as noted in HPI and below [facility] Past Medical History Medical History (Updated 03/03/23 @ 01:14 by Tatyana Garcia PA-C) Morbid obesity Surgical History Surgical History History of colonoscopy History of gastric bypass s/p gastric bypass History of lumpectomy of left breast needle localization left breast lumpectomy left axillary sentinel lymph node 08/09/2019. History of removal of cyst ovarian 08/20/98 Status post biopsy of kidney Family History Family History Mother Hypertension Diabetes mellitus Heart disease Sibling Chemical dependency Social History Social History Smoking packs per day: 0.5 Smoking cigarettes per day: 10.0 Years smoked: 6 Smoking pack-years: 3.00 Smoking status: Former smoker Tobacco type: cigarettes Substance use: current Occupation/Education: retired Spiritual care concerns: No Exam Narrative: GENERAL: Well appearing, obese with BMI of 38.8, non-toxic, in no acute distress. HEAD: Normocephalic, atraumatic. NECK: Supple. No adenopathy, no masses. RESPIRATORY: Airway patent, respirations nonlabored. CARDIOVASCULAR: Regular rate and rhythm without murmurs, rubs, or gallops. Pedal pulses 2+ and equal bilaterally. MUSCULOSKELETAL: Moves all extremities. Strength/ROM intact without gross deformities. SKIN: Warm, dry, normal color. No rashes. Large flap laceration to right lateral lower leg, 14 cm in total. Small areas of oozing, no evidence of hemorrhage or arterial bleeding. Ecchymosis surrounding. Sensation intact. Large superficial linear abrasion just above flap laceration, no active bleeding, no gaping. NEURO: A&O X3. Speech clear. Cranial nerves II-XII grossly intact. Steady gait. No ataxic movements. PSYCHIATRIC: Appropriate mood and affect. Normal interaction. Course Vital Signs Vital signs: Vital Signs Temperature 98.0 F 03/02/23 15:35 Pulse Rate 84 03/02/23 15:35 Respiratory Rate 18 03/02/23 15:35 Blood Pressure 166/73 H 03/02/23 15:35 Pulse Oximetry 98 03/02/23 15:35 Oxygen Delivery Room Air 03/02/23
[2023-03-02] MEDS: LIDOCAINE HCL 1% LOCAL INJ 10 ML VIAL 5 ML INFILTRATE (20:02)
[2023-03-02 20:48] VITALS: BP 173/81; PULSE 71; RESP 15; O2SAT 98
== END 2023-03-02 20:50 | disposition home or self-care (01) ==
PROVIDERS: Emergency Provider Physician Assistant; PCP Internal Medicine
DX: S81.811A Laceration without foreign body, right lower leg, initial encounter (principal); W18.30XA Fall on same level, unspecified, initial encounter; Z23 Encounter for immunization
CPT/HCPCS: 12005; 90471; 90715; 99282

== ENCOUNTER 2023-09-16 08:25 | Outpatient (CLI) | payer BC, SELFPAY ==
[2023-09-16 08:41] LABS: Basophils Percent Auto 0.7 % (0.2-1.2); Eosinophils Absolute Auto 0.2 K/mm3 (0-0.3); Eosinophils Percent Auto 4.2 % (0-4.4); Hematocrit 41.8 % (37.0-47.0); Hemoglobin 13.8 g/dL (12.0-15.0); Immature Granulocyte Absolute 0.03 K/mm3 (0.00-0.031); Immature Granulocyte Percent A 0.6 % (0-0.5); Lymphocytes Absolute Auto 1.56 K/mm3 (0.9-3.2); Lymphocytes Percent Auto 28.7 % (18.3-44.2); Mean Corpuscular Hemoglobin 30.7 pg (26-34); Mean Corpuscular Volume 93.1 fl (80-100); Mean Platelet Volume 9.9 fl (7.4-10.4); Monocytes Absolute Auto 0.8 K/mm3 (0.1-0.6); Monocytes Percent Auto 13.8 % (2.6-8.5); Neutrophils Absolute Auto 2.8 K/mm3 (1.3-6.7); Platelet Count Result 237 k/mm3 (150-375); Red Blood Count 4.49 M/mm3 (4.2-5.4); Red Cell Distribution Width 13.3 % (11.5-14.5); White Blood Count 5.4 K/mm3 (4.5-10.0)
[2023-09-16 10:00] LABS: Alanine Aminotransferase 32 U/L (6-35); Albumin Level 4.2 g/dL (3.5-5.1); Alkaline Phosphatase 57 U/L (38-126); Anion Gap 5 mmol/L (4-12); Aspartate Amino Transferase 32 U/L (14-36); Bilirubin,Total 0.6 mg/dL (0.2-1.3); Blood Urea Nitrogen 17 mg/dL (7-17); Calcium 9.7 mg/dL (8.4-10.2); Carbon Dioxide 28 mmol/L (22-30); Chloride 103 mmol/L (98-107); Estimated Glomerular Filt Rate > 60; Glucose 104 mg/dL (65-110); Sodium 136 mmol/L (137-145)
[2023-09-19 10:10] LABS: CA 15-3 6 U/mL (<32)
== END 2023-09-16 08:26 | disposition home or self-care (01) ==
PROVIDERS: PCP Internal Medicine; Visit Provider Internal Medicine Hematology & Oncology
DX: C50.412 Malignant neoplasm of upper-outer quadrant of left female breast (principal); Z17.0 Estrogen receptor positive status [ER+]
CPT/HCPCS: 36415; 80053; 85025; 86300

== ENCOUNTER 2024-01-07 12:40 | Outpatient (CLI) | payer BC, SELFPAY ==
--- NOTE | ~2024-01-07 | MM_ITS ---
EXAMINATION: MM diagnostic red BI w estephania HISTORY: Abnormality seen on recent cardiac stress test. History of left breast cancer. Status post l umpectomy. TECHNIQUE: Additional 3-D tomosynthesis images of the breasts were performed and synthetic 2-D images were generated. CAD analysis was submitted and interpreted. COMPARISON: Comparison to multiple prior studies sequentially, with oldest reviewed study dated 08/09. BREAST PARENCHYMAL COMPOSITION: Not dense: There are scattered areas of fibroglandular density. FINDINGS: Stable architectural distortion in the left breast, consistent with previous lumpectomy sit e. No new masses, calcifications or architectural distortion in either breast to suggest malignancy. IMPRESSION: 1. No evidence for malignancy in either breast. 2. Routine yearly screening mammogram and regular clinical breast examination are recommended. BI-RADS Category 2: Benign finding(s). Reviewed, dictated and finalized at location B. IMPRESSION: 1. No evidence for malignancy in either breast. 2. Routine yearly screening mammogram and regular clinical breast examination a re recommended. BI-RADS Category 2: Benign finding(s).
== END 2024-01-07 12:41 | disposition home or self-care (01) ==
PROVIDERS: PCP Nurse Practitioner Family; Referring Provider Internal Medicine Hematology & Oncology; Visit Provider Nurse Practitioner Family
DX: Z12.31 Encounter for screening mammogram for malignant neoplasm of breast (principal); N64.89 Other specified disorders of breast
CPT/HCPCS: 77062; 77066; G0279

== ENCOUNTER 2024-04-04 10:17 | Outpatient (CLI) | payer BC, SELFPAY ==
[2024-04-04 10:29] LABS: Basophils Absolute Auto 0.1 K/mm3 (0.0-0.1); Basophils Percent Auto 0.8 % (0.2-1.2); Eosinophils Absolute Auto 0.1 K/mm3 (0-0.3); Eosinophils Percent Auto 1.8 % (0-4.4); Hematocrit 42.2 % (37.0-47.0); Hemoglobin 13.9 g/dL (12.0-15.0); Immature Granulocyte Absolute 0.03 K/mm3 (0.00-0.031); Immature Granulocyte Percent A 0.5 % (0-0.5); Lymphocytes Absolute Auto 1.74 K/mm3 (0.9-3.2); Lymphocytes Percent Auto 27.8 % (18.3-44.2); Mean Corpuscular HGB Conc 32.9 g/dl (32-36); Mean Corpuscular Hemoglobin 30.7 pg (26-34); Mean Corpuscular Volume 93.2 fl (80-100); Monocytes Absolute Auto 0.7 K/mm3 (0.1-0.6); Monocytes Percent Auto 11.7 % (2.6-8.5); Neutrophils Absolute Auto 3.6 K/mm3 (1.3-6.7); Neutrophils Percent Auto 57.4 % (45.5-73.1); Platelet Count Result 281 k/mm3 (150-375); Red Blood Count 4.53 M/mm3 (4.2-5.4); Red Cell Distribution Width 13.7 % (11.5-14.5); White Blood Count 6.3 K/mm3 (4.5-10.0)
[2024-04-04 12:13] LABS: Alanine Aminotransferase 29 U/L (6-35); Albumin Level 4.4 g/dL (3.5-5.1); Alkaline Phosphatase 60 U/L (38-126); Anion Gap 8 mmol/L (4-12); Aspartate Amino Transferase 30 U/L (14-36); Bilirubin,Total 0.7 mg/dL (0.2-1.3); Blood Urea Nitrogen 17 mg/dL (7-17); Calcium 9.5 mg/dL (8.4-10.2); Carbon Dioxide 29 mmol/L (22-30); Chloride 99 mmol/L (98-107); Estimated Glomerular Filt Rate > 60; Glucose 112 mg/dL (65-110); Sodium 136 mmol/L (137-145)
[2024-04-05 11:27] LABS: CA 15-3 5 U/mL (<32)
== END 2024-04-04 10:18 | disposition home or self-care (01) ==
LOC: ANHLAB 10:18
PROVIDERS: PCP Nurse Practitioner Family; Visit Provider Internal Medicine Hematology & Oncology
DX: C50.412 Malignant neoplasm of upper-outer quadrant of left female breast (principal); Z17.0 Estrogen receptor positive status [ER+]
CPT/HCPCS: 36415; 80053; 85025; 86300

== ENCOUNTER 2024-10-19 09:17 | Outpatient (CLI) | payer BC, SELFPAY ==
[2024-10-19 09:45] LABS: Basophils Absolute Auto 0.1 K/mm3 (0.0-0.1); Basophils Percent Auto 0.9 % (0.2-1.2); Eosinophils Absolute Auto 0.1 K/mm3 (0-0.3); Eosinophils Percent Auto 1.5 % (0-4.4); Hematocrit 42.2 % (37.0-47.0); Immature Granulocyte Absolute 0.05 K/mm3 (0.00-0.031); Immature Granulocyte Percent A 0.7 % (0-0.5); Mean Corpuscular HGB Conc 33.2 g/dl (32-36); Mean Corpuscular Hemoglobin 31.1 pg (26-34); Mean Corpuscular Volume 93.8 fl (80-100); Mean Platelet Volume 9.9 fl (7.4-10.4); Monocytes Absolute Auto 0.6 K/mm3 (0.1-0.6); Neutrophils Absolute Auto 4.3 K/mm3 (1.3-6.7); Neutrophils Percent Auto 63.9 % (45.5-73.1); Platelet Count Result 249 k/mm3 (150-375); Red Cell Distribution Width 13.8 % (11.5-14.5); White Blood Count 6.7 K/mm3 (4.5-10.0)
--- OUTSIDE RECORDS SUMMARY | 2024-10-19 09:53 | XMS_ITS | Clinical Summary ---
Author Organization [facility] Erlin Gomez Address [address] [place] [address] Care Team Providers Care Firmware Engineer Name Role Phone Ever Strong MD Primary Care Provider [phone] Allergies No known active allergies Medications calcium as carbonate (CALTRATE) 1,500 mg (600 mg elemental) Tablet Take by mouth. Active multivit-min/iron /folic acid/K (BARIATRIC MULTIVITAMINS ORAL) Take by mouth. Activ e potassium-calcium -magnes-manga (Emergen-C Electro Mix) [phone] mg Powder in Packet Take 1 Packet by mouth. daily Active guselkumab (Tremfya) 100 mg/mL Auto-Injector Inject by subcutaneous injection. Active losartan (COZAAR) 25 mg tablet Take 25 mg by mouth daily. 03/09/20 24 Active anastrozole (ARIMIDEX) 1 mg tablet Take 1 Tablet (1 mg) by mouth daily. 90 Tablet 3 05/17/20 24 Active Active Problems Problem Noted Date Diagnosed Date Malignant neoplasm of upper- outer quadrant of left breast in female, estrogen receptor positive 08/31/2019 Encounters Date Type Department Care Team Description 08/29/2024 External Device Data [facility] ABSTRACTION Provider, Abstract 08/10/2024 External Device Data [facility] Provider, Abstract 08/09/2024 External Device Data [facility] Provider, Abstract 07/26/2024 External Device Data [facility]STRACTION Provider, Abstract from Last 3 Months Family History Medical History Relation Name Comments Heart Disease Brother 3 Diabetes Mother Heart Disease Mother Diabetes Sister Relation Name Status Comments Brother 1 Alive Brother 2 Alive Brother 3 Father Mother Sister Alive Social History Tobacco Use Types Packs/Day Years Used Date Smoking Tobacco: Former Cigarettes 0.5 3 0 08/31/1979 - 08/30/1982 Smokeless Tobacco: Never Alcohol Use Standard Drinks/Week Comments Yes 0 (1 standard drink = 0.6 oz pur e alcohol) Comments No Sex and Gender Information Value Date Recorded Sex Assigned at Not on file Legal Sex Female 9:19 AM SHANK BRE[employer]ER Gender Identity Not on file Sexual Orientation Not on file Last Filed Vital Signs Vital Sign Reading Time Taken Comments Blood Pressure 138/82 04/12/2024 1:06 PM CDT Pulse 76 04/12/2024 1:03 PM CDT Temperature 36.7 C (98 F) 04/12/2024 1:03 PM CDT Respiratory Rate 14 09/25/2023 10:2 3 AM CDT Oxygen Saturation 94% 04/12/2024 1:03 PM CDT Inhaled Oxygen Concentration - - Weight 102.2 kg (225 lb 6.4 oz) 04/12/2024 1:03 PM CDT Height 162.6 cm (5' 4 ) 12/20/2021 11:1 1 AM CDT Body Mass Index 38.69 12/20/2021 11:11 AM CDT Plan of Treatment Upcoming Encounters Date Type Department Care Team (Late st Contact Info) Description 10/28/2024 10:15 AM CDT Office Visit [facility] Oncology and Hematology - [place] [address] [facility] [address] [address] [place] [address] Mike Jang MD [address] [place] [address] Health Maintenance Due Date Last Done Comments Pre-Diabetes and Diabetes Screening 1960 DTAP/TDAP/TD VACCINES (1 - Tdap) 1980 HPV/Cotest (21-29) 1982 CERVICAL CANCER SCREENING 10/31/1991 HPV/Cotest (30-65) 10/31/1991 PAP SMEAR 10/31/1991 FIT-DNA Q 3 years 2006 FIT/FOBT Q 1 year 2006 Flex Sig/CT Colonography Q 5 years 2006 ZOSTER VACCINE (1 of 2) 10/31/2011 INFLUENZA VACCINE (#1) 2024 05/22/2015 Preventative Visit- Commercial 06/22/2024 12/27/2021 , 11/02/2020 BREAST CANCER SCREENING 01/06/2025 01/07/20 24, 10/12/2020, 06/01/2020 COLORECTAL SCREENING 11/03/2027 11/02/2017 Colorectal Cancer Screening 11/03/2027 RSV VACCINE (60+ or ) (1 - 1-dose 75+ series) 2036 Procedures Procedure Name Priority Date/Time Associated Diagnosis Comments MAMMO 3D FLOYD DIAGNOSTIC BILAT W OR WO CAD Routine 10/12/2020 Malignant neoplasm of upper-outer quadrant of left breast in female, estrogen receptor positive (CMS/HCC) from Last 3 Months or Most Recently Relevant to Health Maintenance Results * MAMMO DIAG BILAT 3D FLOYD W OR WO CAD (10/12/2020) Anatomical Region Laterality Modality Breast Bilateral Mammography Mike Jang MD MAMMO ORDERABLES Final Result from Last 3 Months or Most Recently Relevant to Health Maintenance Insurance [facility] PREFERR[facility] Care Teams Firmware Engineer Relationship Specialty Start Date End Date Ever Strong MD [id number] [place] [id number] PCP - General Internal Medicine 08/24/19
--- OUTSIDE RECORDS SUMMARY | 2024-10-19 09:53 | XMS_ITS | Clinical Summary ---
Author Organization [facility] [address] [facility] 5th [place] [address] Care Team Providers Care Automotive Leasing Sales Representative Name Role Phone Ever Strong MD Unavailable Gloria Juárez NP Primary Care Provider [phone] Mike Jang MD Unavailable [phone] Lenard Purcell MD Unavailable [phone] Allergies No known active allergies Medications fluocinolone (DERMA-SMOOTHE) 0.01 % external oil 10/22/2020 Active clobetasoL (TEMOVATE) 0.05 % external solution 08/16/2019 A ctive anastrozole (ARIMIDEX) 1 mg tablet TAKE 1 TABLET BY MOUTH DAILY 11/16/2019 Active calcium carbonate (OS-EDGARD) 1,500 mg (600 mg of elemental calcium) tablet Take by mouth Active multivit-mineral- iron-lutein tablet Take by mouth Active fluocinolone (DERMA-SMOOTH/FS) 0.01 % oil 01/08/2024 Active potassium-calcium -magnes-manga (Emergen-C Electro Mix) 702-507-266-2 mg powder in packet Take 1 packet by mouth daily Active Tremfya 100 mg/mL auto-injector subcutaneous syringe Inject under the skin 03/13/2022 Active losartan (COZAAR) 25 mg tabletIndications :Hypertension, essential TAKE 1 TABLET(25 MG) BY MOUTH DAILY 30 tablet 1 08/29/2024 Active Active Problems Problem Noted Date Diagnosed Date Hypertension, essential 12/17/2023 Assessment & Plan (08/31/2024 8:43 AM CDT): BP normal in office, continues Losartan 25 mg daily. Assessment & Plan (01/15/2024 10:08 AM CDT): Blood pressure improved in office, continuing Losartan 25 mg daily. Symptoms have also improved. Patient to alert me if home BP's start consistently being elevated higher than 130/80. Assessment & Plan (12/17/2023 4:12 PM CDT): BP elevated in office. EKG in office showing right bundle branch block. Home BP log shows elevated readings also. Will start Losartan 25mg. Advised on keeping a BP log at home and to bring it to her four week follow-up appt. Updated labs ordered Encounters Date Type Department Care Team Description 09/01/2024 Results Follow-Up [facility] Primary Care at [address] [address] Gloria Juárez NP 08/31/2024 9:00 AM CDT Lab [facility] Outpatient Lab at [address] [address] Hypertension, essential (Primary Dx) 08/31/2024 8:44 AM CDT - 08/31/2024 11:59 PM CDT Hospital Encounter [address] [address] Encounter for hepatitis C screening test for low risk patient; Prediabetes; Vitamin D deficiency; Hypertension, essential Discharge Disposition: Discharge to home or self care 08/31/2024 8:30 AM CDT Office Visit [facility] Primary Care at [address] [address] Gloria Juárez NP Annual physical exam (Primary Dx); Hypertension, essential; Vitamin D deficiency; Prediabetes; Encounter for hepatitis C screening test for low risk patient from Last 3 Months Immunizations Immunization Administration Dates Next Due Influenza, Quadrivalent, Spl it, Intramuscular 05/22/2015 Influenza, Unspecified 06/22/2023(Deferr ed: Patient Refused),06/22/2022(Deferred: Patient Refused) Surgical History Surgery Date Site/Laterality Comments BARIATRIC SURGERY OVARIAN CYST REMOVAL RENAL BIOPSY BREAST LUMPECTOMY BRACHIOPLASTY Bilateral BREAST BIOPSY Left Medical History Medical History Date Comments Cancer (HCC) Weight loss Hx of radiation therapy Breast cancer (HCC) Family History Medical History Relation Name Comments Heart attack Brother Stu Heart disease Brother Stu Hypertension Father Dad Diabetes Mother mom Heart attack Mother mom Heart disease Mother mom Hypertension Mother mom Stroke Mother mom Diabetes Sister Estelle Relation Name Status Comments Brother Stu Father Dad Mother mom Sister Estelle Social History Tobacco Use Types Packs/Day Years Used Date Smoking Tobacco: Former Cigarettes Q uit: 1997 Tobacco Cessation:Counseling Given: Not Answered PHQ-2 Answer Date Recorded PHQ-2 Total Score (If total score is 3 or more points, staff should administer the PHQ-9) 0 08/31/2024 Comments Unknown Sex and Gender Information Value Date Recorded Sex Assigned at Not on file 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 Gender Identity Female 09/23/2020 9:27 AM CDT Sexual Orientation Straight 09/23/2020 9: 27 AM CDT Obstetrics History Last Filed Vital Signs Vital Sign Reading Time Taken Comments Blood Pressure 122/62 08/31/2024 8:25 AM CDT Pulse 77 08/31/2024 8:25 AM CDT Temperature 36.7 C (98 F) 08/31/2024 8:25 AM CDT Respiratory Rate 18 01/15/2024 9:49 AM CDT Oxygen Saturation 97% 08/31/2024 8:25 AM CDT Inhaled Oxygen Concentration - - Weight 100.7 kg (222 lb) 08/31/2024 8:25 AM CDT Height 162.6 cm (5' 4.02 ) 01/15/2024 9:49 AM CD T Body Mass Index 38.09 01/15/2024 9:49 AM CDT Plan of Treatment Health Maintenance Due Date Last Done Comments DTaP/Tdap/Td Vaccine (1 - Tdap) 1972 Hepatitis B Screening 10/31/1979 Pneumococcal vaccine <65 (1 of 2 - PCV) 1980 Zoster Vaccine (1 of 2) 1980 Covid-19 Vaccine (3 - Pfizer risk series) 01/24/2021 12/27/2020, 12/06/2020 Breast Cancer Screening-Mammogram 01/06/2025 01/07/2024, 10/28/2022, 10/28/2022 Influenza Vaccine (Season Ended) 2025 05/22/20 15 Depression Screening 08/31/2025 08/31/2024, 01/15/2024, 12/17/2023 Regular Well Visit/Exam 18-64 08/31/2025, 12/27/2021, 11/02/2020 Cervical Cancer Screening 09/02/20252024, 05/22/2023, 05/20/2023 Colon Cancer Screening-Colonoscopy 11/03/20272017 Hepatitis C Screening Completed 08/31/2024 Procedures Procedure Name Priority Date/Time Associated Diagnosis Comments HM PAP SMEAR WITH HPV Routine 09/02/2024 9:20 AM CDT EGFR Routine 08/31/2024 8:44 AM CDT Hypertension, essential DIFFERENTIAL AUTO Routine 08/31/2024 8:4 4 AM CDT Hypertension, essential CBC WITH AUTO DIFFERENTIAL Routine 08/31/2024 8:44 AM CDT Hypertension, essential COMPREHENSIVE METABOLIC PANEL Routine 08/31/2024 8:44 AM CDT Hypertension, essential LIPID PANEL Routine 08/31/2024 8:44 AM CDT Hypertension, essential THYROID FUNCTION CASCADE Routine 08/31/2024 8:44 AM CDT Hypertension, essential VITAMIN D 25 HYDROXY Routine 08/31/2024 8:44 AM CDT Vitamin D deficiency HEMOGLOBIN A1C Routine 08/31/2024 8:44 AM CDT Prediabetes HEPATITIS C ANTIBODY Routine 08/31/2024 8:44 AM CDT Encounter for hepatitis C screening test for low risk patient DIAGNOSTIC MAMMOGRAM BILATERAL W HARRIS Schedule Routine, Read Routine (OP Routine) 01/07/2024 10:11 AM CDT COLONOSCOPY Routine 11/02/2017 from Last 3 Months or Most Recently Relevant to Health Maintenance Results * HM PAP SMEAR WITH HPV (09/02/2024 9:20 AM CDT) Scribed Pap Smear w/HPV Normal us Lenard Moncada MD HEALTH MAINTENANCE Final Result * eGFR (08/31/2024 8:44 AM CDT) eGFR >90 >=60 mL/min/1. 73 m2 Comment: Interpretive Data Reference Interval Normal >/= 90 mL/min/1.73m2 Mildly decreased* 60 - 89 mL/min/1.73m2 Mildly to moderately decreased 45 - 59 mL/min/1.73m2 Moderately to severely decreased 30 - 44 mL/min/1.73m2 Severely decreased 15 - 29 mL/min/1.73m2 Kidney Failure < 15 mL/min/1.73m2 *Relative to young adult level Estimated glomerular filtration rate is determined by the 2020 CKD-EPI equation recommended by the National Kidney Foundation (A Unifying Approach to GFR Estimation: Recommendations of the NKF-ASK Task Force on Reassessing the Inclusion of Race in Diagnosing Kidney Disease, JASN 2020). The CKD-EPI equation should not be used for patients with unstable renal function and has not been validated in children and those over 70. Current interpretive data was last reviewed 2021. Blood 08/31/2024 8:44 AM CDT 08/31/2024 7:11 PM CDT us Gloria Juárez NP LAB BLOOD ORDERABLES Final Resul t URIAH [address] Department [place] [address] * (ABNORMAL) Differential, auto (08/31/2024 8:44 AM CDT) Neutrophil abs 4.9 1.5 - 6.5 K/cumm Imm gran abs 0.1 0.0 - 0.1 K/cumm [facility] Lymphocyte abs 1.7 0.8 - 3.3 K/cumm [facility] Monocyte abs 0.9(H) 0.2 - 0.8 K/cumm [facility] Eosinophil abs 0.1 0.0 - 0.5 K/cumm [facility] Basophil abs 0.1 0.0 - 0.1 K/cumm [facility] Neutrophil pct 63.7 % [facility] Comment: Interpretive Data Percent cell count reference ranges are not reported, since discordance with absolute values may lead to misinterpretation of CBC data. Current Interpretive Data was last revised on 2017. Imm gran pct 0.8 % [facility] Comment: Interpretive Data Percent cell count reference ranges are not reported, since discordance with absolute values may lead to misinterpretation of CBC data. Current Interpretive Data was last revised on 2017. Lymphocyte pct 22.5 % [facility] Comment: Interpretive Data Percent cell count reference ranges are not reported, since discordance with absolute values may lead to misinterpretation of CBC data. Current Interpretive Data was last revised on 2017. Monocyte pct 11.2 % [facility] Comment: Interpretive Data Percent cell count reference ranges are not reported, since discordance with absolute values may lead to misinterpretation of CBC data. Current Interpretive Data was last revised on 2017. Eosinophil pct 0.9 % [facility] Comment: Interpretive Data Percent cell count reference ranges are not reported, since discordance with absolute values may lead to misinterpretation of CBC data. Current Interpretive Data was last revised on 2017. Basophil pct 0.9 % [facility] Comment: Interpretive Data Percent cell count reference ranges are not reported, since discordance with absolute values may lead to misinterpretation of CBC data. Current Interpretive Data was last revised on 2017. Blood 08/31/2024 8:44 AM CDT 08/31/2024 7:06 PM CDT us Gloria Juárez ADVERTISING WRITER LAB BLOOD ORDERABLES Final Resul t Performing Organization Address City/[facility] Co de Phone Number URIAH PALM [address] [address] [facility] [place] [address] * Thyroid Function [place] (08/31/2024 8:44 AM CDT) TSH 0.76 0.30 - 4.20 mcIUnit/mL Blood 08/31/2024 8:44 AM CDT 08/31/2024 7:06 PM CDT us Gloria Juárez ADVERTISING WRITER LAB BLOOD ORDERABLES Final Resul t Performing Organization Address [facility] de Phone Number URIAH PALM [address] [address] [facility] [place] [address] * (ABNORMAL) CBC with auto differential (08/31/2024 8:44 AM CDT) Pathologist [facility] WBC 7.8 3.8 - 9.9 K/cumm Hgb 13.5 11.9 - 15.5 g/dL [facility] Hct 44.1 35.6 - 45.5 % [facility] Plt 315 150 - 400 K/cumm [facility] MPV 11.0 9.1 - 12.3 fL [facility] RBC 4.47 3.90 - 5.20 M/cumm [facility] MCV 98.7(H) 81.3 - 96.4 fL [facility] MCH 30.2 27.1 - 33.3 pg [facility] MCHC 30.6(L) 32.3 - 35.7 g/dL [facility] CH RDW CV 14.7 11.1 - 14.9 % [facility] CH RDW SD 53.1(H) 35.7 - 48.1 fL [facility] NRBC abs 0.00 0.00 - 0.01 K/cumm [facility] CH Blood 08/31/2024 8:44 AM CDT 08/31/2024 7:06 PM CDT us Gloria Juárez ADVERTISING WRITER LAB BLOOD ORDERABLES Final Resul t Performing Organization Address City/[facility]/ZIP Co de Phone Number [facility] [address] [address] [facility] [employer] [address] * Hepatitis C antibody Blood (08/31/2024 8:44 AM CDT) [facility] Hep C Ab Nonreactive Nonreactive Comment: Interpretive Data Nonreactive: Antibodies to HCV not detected. Does NOT exclude the possibility of recent exposure to HCV. Equivocal: Equivocal for HCV antibodies. Supplemental molecular testing will be automatically performed to determine infection status in accordance with current CDC screening recommendations. Reactive: Positive for HCV antibodies. This may represent current or past HCV infection. Supplemental molecular testing will be automatically performed to determine current infection status in accordance with current CDC screening recommendations. Interpretive data was last revised on 2019. Blood 08/31/2024 8:44 AM CDT 08/31/2024 7:06 PM CDT us Gloria Juárez NP LAB MICROBIOLOGY - GENERAL ORDER ELENA Final Result Performing Organization Address [facility] de Phone Number [facility] [address] [address] [employer] [address] * Vitamin D 25 hydroxy (08/31/2024 8:44 AM CDT) [facility] Vitamin D 25-OH 36 30 - 80 ng/mL Blood 08/31/2024 8:44 AM CDT 08/31/2024 7:06 PM CDT us Gloria Juárez NP LAB BLOOD ORDERABLES Final Resul t Performing Organization Address [facility] de Phone Number [facility] [address] [address] [place] [address] * Hemoglobin A1c (08/31/2024 8:44 AM CDT) [facility] Hgb A1C 5.6 4.0 - 5.6 % Estimated Average Glucose 114 mg/dL URIAH PALM Comment: The ADA recommends reporting an estimated Average Glucose (eAG) with all Hemoglobin A1c results using the equation derived from a study of 507 normal and diabetic adults. Minority populations were underrepresented and children were not included. (Diabetes Care 31:5986-7205, 2008). The eAG is not equivalent to a fasting glucose. Blood 08/31/2024 8:44 AM CDT 08/31/2024 7:06 PM CDT us Gloria Juárez ADVERTISING WRITER LAB BLOOD ORDERABLES Final Resul t URIAH PALM [address] Department [place] [address] * (ABNORMAL) Lipid panel (08/31/2024 8:44 AM CDT) Cholesterol 210(H) 30 - 199 mg/dL Comment: Interpretive Data Ages < or = 19 years Acceptable: <170 mg/dL Borderline high: 170-199 mg/dL High: >or= 200 mg/dL Ages > or = 20 years Desirable: <200 mg/dL Borderline high: 200-239 mg/dL High: >or= 240 mg/dL Literature References: 1. Expert Panel on Integrated Guidelines for Cardiovascular Health and Risk Reduction in Children and Adolescents. Pediatrics 2011;128:S213 2. NCEP Expert Panel. Circulation 2004;110:227 Current Interpretive Data was last revised on 2018. Triglycerides 211(H) <=149 mg/dL URIAH PALM Comment: Interpretive Data Ages < or = 9 years Acceptable: <75 mg/dL Borderline high: 75-99 mg/dL High: >or= 100 mg/dL Ages 10 to 20 years Acceptable: <90 mg/dL Borderline high: 90-129 mg/dL High: >or= 130 mg/dL Ages > or = 20 years Desirable: <150 mg/dL Borderline high: 150-199 mg/dL High: 200-499 mg/dL Very high: >or= 499 mg/dL Literature References: 1. Expert Panel on Integrated Guidelines for Cardiovascular Health and Risk Reduction in Children and Adolescents. Pediatrics 2011;128:S213 2. NCEP Expert Panel. Circulation 2004;110:227 Current Interpretive Data was last revised on 2018. HDL 61 >=40 mg/dL URIAH PALM Comment: Interpretive Data Ages < or = 19 years Acceptable: >45 mg/dL Borderline low: 40-45 mg/dL Low: <40 mg/dL Ages > or = 20 years Desirable: >or= 60 mg/dL Low: <40 mg/dL Literature References: 1. Expert Panel on Integrated Guidelines for Cardiovascular Health and Risk Reduction in Children and Adolescents. Pediatrics 2011;128:S213 2. NCEP Expert Panel. Circulation 2004;110:227 Current Interpretive Data was last revised on 2018. LDL, calculated 113 <=129 mg/dL URIAH PALM Comment: Interpretive Data Ages < or = 19 years Acceptable: <110 mg/dL Borderline high: 110-129 mg/dL High: >or= 130 mg/dL Ages > or = 20 years Optimal: <100 mg/dL Near optimal: 100-129 mg/dL Borderline high: 130-159 mg/dL High: >160 mg/dL Calculated using the Yo LDL-C estimating equation. This equation was implemented on 2024. Prior to this date LDL-C was estimated using the Friedewald equation. Literature References: 1. Expert Panel on Integrated Guidelines for Cardiovascular Health and Risk Reduction in Children and Adolescents. Pediatrics 2011;128:S213 2. NCEP Expert Panel. Circulation 2004;110:227 3. Yo Alexander et al. JITENDRA Cardiol. 2019October 20;5(5):540-548. doi: 10.1001/jamacardio.2020.0013 Current Interpretive Data was last revised on 2024. Non-HDL Cholesterol 149 mg/dL URIAH Comment: Interpretive Data Ages < or = 19 years Acceptable: <120 mg/dL Borderline high: 120-144 mg/dL High: >145 mg/dL Ages > or = 20 years When triglycerides are >200 mg/dL, Non-HDL cholesterol is a secondary target of therapy with treatment goals that are 30 mg/dL greater than the LDL cholesterol target. Literature References: 1. Expert Panel on Integrated Guidelines for Cardiovascular Health and Risk Reduction in Children and Adolescents. Pediatrics 2011;128:S213 2. NCEP Expert Panel. Circulation 2004;110:227 Current Interpretive Data was last revised on 2018. Chol/HDL ratio 3 URIAH Blood 08/31/2024 8:44 AM CDT 08/31/2024 7:06 PM CDT Gloria Juárez ADVERTISING WRITER LAB BLOOD ORDERABLES Final Resul t URIAH PALM [address] Department [place] [address] * Comprehensive metabolic panel (08/31/2024 8:44 AM CDT) Sodium 135 135 - 145 mmol/L Potassium, pl 3.8 3.3 - 4.9 mmol/L [facility] Chloride 97 97 - 110 mmol/L [facility] CO2 25 22 - 32 mmol/L [facility] Anion gap 13 2 - 15 mmol/L [facility] BUN 19 6 - 25 mg/dL [facility] Creatinine 0.69 0.60 - 1.10 mg/dL [facility] Glucose 92 70 - 199 mg/dL [facility] Comment: Interpretive Data Fasting glucose >/= 126 mg/dl is diagnostic for diabetes. Fasting is defined as no caloric intake for at least 8 hours. Fasting glucose between 100 mg/dl to 125 mg/dl is diagnostic of prediabetes. In a patient with classic symptoms of hyperglycemia or hyperglycemic crisis, a random glucose >/= 200 mg/dl is diagnostic for diabetes. In the absence of unequivocal hyperglycemia, results should be confirmed by repeat testing. The classification and Diagnosis of Diabetes Diabetes Care 202; 46: S19-S40. Current interpretive data was last revised 2022. Calcium 9.3 8.5 - 10.3 mg/dL [facility] Bilirubin, total 0.3 0.1 - 1.2 mg/dL [facility] Protein, pl 7.4 6.5 - 8.5 g/dL [facility] Albumin 4.3 3.5 - 5.0 g/dL [facility] Alk phos 53 40 - 130 Units/L [facility] ALT 25 7 - 45 Units/L [facility] AST 42 10 - 45 Units/L [facility] Blood 08/31/2024 8:44 AM CDT 08/31/2024 7:06 PM CDT us Gloria Juárez ADVERTISING WRITER LAB BLOOD ORDERABLES Final Resul t URIAH PALM [address] [facility] Department [place] [address] * Diagnostic Mammogram Bilateral W Harris (01/07/2024 10:11 AM CDT) Anatomical Region Laterality Modality Breast Bilateral Mammography us Historical Provider IMG MAMMO PROCEDURES Edna l Result * Colonoscopy (11/02/2017) Anatomical Region Laterality Modality Other Narrative 11/02/2017 Pt had in 2018 with a normal result repeat in 10 years us Historical Provider ENDOSCOPY PROCEDURES Edna l Result from Last 3 Months or Most Recently Relevant to Health Maintenance [place] [address] [place] [phone] [place] Care Teams Automotive Leasing Sales Representative Relationship Specialty Start Date End Date Gloria Juárez NP [address] [address] PCP - General Family Medicine 12/17/23 Ever Strong MD [address] [facility] [address] [place] [address] Internal Medicine 10/13/23 Mike Jang MD [address] [facility] [address] [place] [address] Referring Physician Hematology 12/17/23 Lenard Purcell MD [address] [facility] [address] [place] [address] Referring Physician Obstetrics and Gynecology 12/17/23
--- OUTSIDE RECORDS SUMMARY | 2024-10-19 09:53 | XMS_ITS | Encounter Summary ---
Author Organization [facility] Healthcare Address [address] [place] [address] Care Team Providers Care Industrial Engineering Name Role Phone Ever Strong MD Unavailable Gloria Juárez NP Primary Care Provider [phone] Mike Jang MD Unavailable Lenard Purcell MD Unavailable [phone] Encounter Details Date Type Department Care Team (Late st Contact Info) Description 09/01/2024 Results Follow-Up [facility] Primary Care at [address] [address] Gloria Juárez NP [address] [place] [address] [address] [place] [address] Social History Tobacco Use Types Packs/Day Years Used Date Smoking Tobacco: Former Cigarettes Q uit: 1997 PHQ-2 Answer Date Recorded PHQ-2 Total Score (If total score is 3 or more points, staff should administer the PHQ-9) 0 08/31/2024 Comments Unknown Sex and Gender Information Value Date Recorded Sex Assigned at Not on file 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 Gender Identity Female 09/23/2020 9:27 AM CDT Sexual Orientation Straight 09/23/2020 9: 27 AM CDT documented as of this encounter Plan of Treatment Not on file documented as of this encounter Visit Diagnoses Not on filedocumented in this encounter Care Teams Industrial Engineering Relationship Specialty Start Date End Date Gloria Juárez NP [address] [facility] [address] [place] [address] PCP - General Family Medicine 12/17/23 Ever Strong MD [address] [facility] [address] [place] [address] Internal Medicine 10/13/23 Mike Jang MD [facility] [facility] [address] [place] [address] Referring Physician Hematology 12/17/23 Lenard Purcell MD [address] [facility] [address] [place], [place] [address] Referring Physician Obstetrics and Gynecology 12/17/23 documented as of this encounter
--- OUTSIDE RECORDS SUMMARY | 2024-10-19 09:53 | XMS_ITS | Referral Summary ---
Author Organization [facility] [place] [address] Address [address] [facility] 5th [place] [address] Care Team Providers Care Parcel Post Carrier Name Role Phone Ever Strong MD Unavailable [phone] Gloria Juárez NP Primary Care Provider Mike Jang MD Unavailable [phone] Lenard Purcell MD Unavailable [phone] Encounters Date Type Department Care Team Description 09/01/2024 Results Follow-Up [facility] Primary Care at [address] [address] Gloria Juárez NP 08/31/2024 8:44 AM CDT - 08/31/2024 11:59 PM CDT Hospital Encounter [address] [address] Encounter for hepatitis C screening test for low risk patient; Prediabetes; Vitamin D deficiency; Hypertension, essential Discharge Disposition: Discharge to home or self care 08/31/2024 9:00 AM CDT Lab [facility] Outpatient Lab at [address] [address] Hypertension, essential (Primary Dx) 08/31/2024 8:30 AM CDT Office Visit [facility] Primary Care at [address] [address] Gloria Juárez NP Annual physical exam (Primary Dx); Hypertension, essential; Vitamin D deficiency; Prediabetes; Encounter for hepatitis C screening test for low risk patient from Last 3 Months Allergies No known active allergies Medications fluocinolone [...] 01/08/2024 Active potassium-calcium -magnes-manga (Emergen-C Electro Mix) [id number] mg powder in packet Take 1 packet [...] four week follow-up appt. Updated labs ordered Immunizations Immunization Administration Dates Next Due Influenza, Quadrivalent, Spl it, Intramuscular 05/22/2015 Influenza, Unspecified 06/22/2023(Deferr ed: Patient Refused),06/22/2022(Deferred: Patient Refused) Social History Tobacco Use Types Packs/Day Years Used Date Smoking Tobacco: Former Cigarettes Q uit: 1997 Tobacco Cessation:Counseling Given: Not Answered PHQ-2 Answer Date Recorded PHQ-2 Total Score (If total score is 3 or more points, staff should administer the PHQ-9) 0 08/31/2024 Comments Unknown Sex and Gender Information Value Date Recorded Sex Assigned at Not on file 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 Gender Identity Female 09/23/2020 9:27 AM CDT Sexual Orientation Straight 09/23/2020 9: 27 AM CDT Last Filed Vital Signs Vital Sign Reading [...] 01/15/2024 9:49 AM CDT Plan of Treatment Not on file Procedures Procedure Name Priority Date/Time Associated Diagnosis [...] 08/31/2024 7:11 PM CDT us Gloria Juárez NURSE ADVISOR LAB BLOOD ORDERABLES Final Resul t [facility] [address] Department [place] [address] * (ABNORMAL) Differential, auto (08/31/2024 8:44 AM CDT) Neutrophil abs 4.9 1.5 - 6.5 K/cumm Imm gran abs 0.1 0.0 - 0.1 K/cumm [facility] Lymphocyte abs 1.7 0.8 - 3.3 K/cumm [facility] Monocyte abs 0.9(H) 0.2 - 0.8 K/cumm [facility] Eosinophil abs 0.1 0.0 - 0.5 K/cumm [facility] Basophil abs 0.1 0.0 - 0.1 K/cumm [facility] Neutrophil pct 63.7 % [facility] Comment: Interpretive Data Percent cell count reference ranges are not reported, since discordance with absolute values may lead to misinterpretation of CBC data. Current Interpretive Data was last revised on 2017. Imm gran pct 0.8 % [facility] Comment: Interpretive Data Percent cell count reference ranges are not reported, since discordance with absolute values may lead to misinterpretation of CBC data. Current Interpretive Data was last revised on 2017. Lymphocyte pct 22.5 % [facility] Comment: Interpretive Data Percent cell count reference ranges are not reported, since discordance with absolute values may lead to misinterpretation of CBC data. Current Interpretive Data was last revised on 2017. Monocyte pct 11.2 % [facility] Comment: Interpretive Data Percent cell count reference ranges are not reported, since discordance with absolute values may lead to misinterpretation of CBC data. Current Interpretive Data was last revised on 2017. Eosinophil pct 0.9 % [facility] Comment: Interpretive Data Percent cell count reference ranges are not reported, since discordance with absolute values may lead to misinterpretation of CBC data. Current Interpretive Data was last revised on 2017. Basophil pct 0.9 % [facility] Comment: Interpretive Data Percent cell count reference ranges are not reported, since discordance with absolute values may lead to misinterpretation of CBC data. Current Interpretive Data was last revised on 2017. Blood 08/31/2024 8:44 AM CDT 08/31/2024 7:06 PM CDT Gloria Juárez NURSE ADVISOR LAB BLOOD ORDERABLES Final Resul t Performing Organization Address City/[facility] Co de Phone Number [facility] [address] Department of Laboratories [place], [place] [id number] * Thyroid Function [place] (08/31/2024 8:44 AM CDT) Pathologist [facility] TSH 0.76 0.30 - 4.20 mcIUnit/mL Blood 08/31/2024 8:44 AM CDT 08/31/2024 7:06 PM CDT Gloria Juárez NP LAB BLOOD ORDERABLES Final Resul t Performing Organization Address [facility] de Phone Number [facility] [address] Department of [employer] [place], [place] [id number] * (ABNORMAL) CBC with auto differential (08/31/2024 8:44 AM CDT) Pathologist [facility] WBC 7.8 3.8 - 9.9 K/cumm Hgb 13.5 11.9 - 15.5 g/dL [facility] Hct 44.1 35.6 - 45.5 % [facility] Plt 315 150 - 400 K/cumm [facility] MPV 11.0 9.1 - 12.3 fL [facility] RBC 4.47 3.90 - 5.20 M/cumm [facility] MCV 98.7(H) 81.3 - 96.4 fL [facility] MCH 30.2 27.1 - 33.3 pg [facility] MCHC 30.6(L) 32.3 - 35.7 g/dL [facility] RDW CV 14.7 11.1 - 14.9 % [facility] RDW SD 53.1(H) 35.7 - 48.1 fL [facility] NRBC abs 0.00 0.00 - 0.01 K/cumm [facility] Blood 08/31/2024 8:44 AM CDT 08/31/2024 7:06 PM CDT us Gloria Juárez NP LAB BLOOD ORDERABLES Final Resul t Performing Organization Address [facility] de Phone Number [facility] [address] [place] [address] * Hepatitis C antibody Blood (08/31/2024 8:44 AM CDT) Pathologist [facility] Hep C Ab Nonreactive Nonreactive Comment: Interpretive [...] ORDER ELENA Final Result Performing Organization Address City/[facility] Co de Phone Number [facility] PALM [address] [place], [place] [id number] * Vitamin D 25 hydroxy (08/31/2024 8:44 AM CDT) Pathologist [facility] Vitamin D 25-OH 36 30 - 80 ng/mL Blood 08/31/2024 8:44 AM CDT 08/31/2024 7:06 PM CDT us Gloria Juárez NURSE ADVISOR LAB BLOOD ORDERABLES Final Resul t Performing Organization Address [facility] de Phone Number URIAH [address] Department [place] [address] * Hemoglobin A1c (08/31/2024 8:44 AM CDT) Pathologist [facility] Hgb A1C 5.6 4.0 - 5.6 % Estimated Average Glucose 114 mg/dL [facility] PALM Comment: The ADA recommends reporting an estimated Average Glucose (eAG) with all Hemoglobin A1c results using the equation derived from a study of 507 normal and diabetic adults. Minority populations were underrepresented and children were not included. (Diabetes Care 31:8954-4308, 2008). The eAG is not equivalent to a fasting glucose. Blood 08/31/2024 8:44 AM CDT 08/31/2024 7:06 PM CDT Gloria Juárez NURSE ADVISOR LAB BLOOD ORDERABLES Final Resul t Performing Organization Address [facility] de Phone Number [facility] PALM [address] Department [place] [address] * (ABNORMAL) Lipid panel (08/31/2024 8:44 AM CDT) Pathologist [facility] Cholesterol 210(H) 30 - 199 mg/dL Comment: [...] 3. Yo Alexander et al. JITENDRA Cardiol. 2020 October 20;5(5):540-548. doi: 10.1001/jamacardio.2020.0013 Current Interpretive Data was last revised on 2024. Non-HDL Cholesterol 149 mg/dL [facility]M Comment: Interpretive Data Ages [...] last revised on 2018. Chol/HDL ratio 3 [facility]ERN[facility] Blood 08/31/2024 8:44 AM CDT 08/31/2024 7:06 PM CDT us Gloria Juárez NP LAB BLOOD ORDERABLES Final Resul t [facility] [address] Department [place] [address] * Comprehensive metabolic panel (08/31/2024 8:44 AM [...] CDT 08/31/2024 7:06 PM CDT Gloria Juárez NURSE ADVISOR LAB BLOOD ORDERABLES Final Resul t [facility] PALM [address] Department of Laboratories [place], [place] [id number] * Diagnostic Mammogram Bilateral W Harris (01/07/2024 10:11 AM CDT) Anatomical Region Laterality Modality Breast Bilateral Mammography Historical Provider IMG MAMMO PROCEDURES Dena l Result * Colonoscopy (11/02/2017) Anatomical Region Laterality Modality Other Narrative 11/02/2017 Pt had in 2018 with a normal result repeat in 10 years Historical Provider ENDOSCOPY PROCEDURES Edna l Result from Last 3 Months or Most Recently Relevant to Health Maintenance [place] Care Teams Parcel Post Carrier Relationship Specialty Start Date End Date Gloria Juárez NP [address] [facility] [address] [place], [place] [id number] PCP - General Family Medicine 12/17/23 Ever Strong MD [address] [facility] [address] [place] [address] Internal Medicine 10/13/23 Mike Jang MD [address] [facility] [address] [place] [address] Referring Physician Hematology 12/17/23 Lenard Purcell MD [address] [place] [address] Referring Physician Obstetrics and Gynecology 12/17/23
--- OUTSIDE RECORDS SUMMARY | 2024-10-19 09:53 | XMS_ITS | CONTINUITY OF CARE DOCUMENT ---
Author Name prosper cheng Address Unknown Organization [facility] Address [address] [facility] [address] [place] [address] Phone [phone] Care Team Providers Care Orthotist Name Role Phone Farshad Stoll MD Unavailable [phone] ALEX KINCAID MD Unavailable INSURANCE PROVIDERS Payer name Policy type / Coverage type [place] red green party ID [facility] [id number]
--- OUTSIDE RECORDS SUMMARY | 2024-10-19 09:53 | XMS_ITS | Encounter Summary ---
Author Organization [facility] Address [address] [place] [address] Care Team Providers Care Registry Nurse Name Role Phone Ever Strong MD Primary Care Provider [phone] Encounter Details Date Type Department Care Team (Late Contact Info) Description 08/31/2019 Chart Note [facility] Radiation Therapy [address] [place] [address] [place] [address] [place] [address] Social History Tobacco Use Types Packs/Day Years Used Date Smoking Tobacco: Former Cigarettes 0.5 3 0 08/31/1979 - 08/30/1982 Smokeless Tobacco: Never Alcohol Use Standard Drinks/Week Comments Yes 0 (1 standard drink = 0.6 oz pur e alcohol) Comments No Sex and Gender Information Value Date Recorded Sex Assigned at Not on file 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 Gender Identity Not on file Sexual Orientation Not on file documented as of this encounter Functional Status documented as of this encounter Plan of Treatment Upcoming Encounters Date Type Department Care Team (Late st Contact Info) Description 10/28/2024 10:15 AM CDT Office Visit [facility] Oncology and Hematology - [place] [address] [facility] [address] [place] [address] Mike Jang MD [address] [facility] [address] [place] [address] documented as of this encounter Visit Diagnoses Not on filedocumented in this encounter Care Teams Registry Nurse Relationship Specialty Start Date End Date Ever Strong MD [address] [address] PCP - General Internal Medicine 08/24/19 documented as of this encounter
[2024-10-19 10:19] LABS: Alanine Aminotransferase 44 U/L (6-35); Albumin Level 4.3 g/dL (3.5-5.1); Alkaline Phosphatase 60 U/L (38-126); Anion Gap 8 mmol/L (4-12); Aspartate Amino Transferase 59 U/L (14-36); Bilirubin,Total 0.6 mg/dL (0.2-1.3); Blood Urea Nitrogen 14 mg/dL (7-17); Carbon Dioxide 28 mmol/L (22-30); Chloride 101 mmol/L (98-107); Estimated Glomerular Filt Rate > 60; Glucose 108 mg/dL (65-110); Sodium 137 mmol/L (137-145)
[2024-10-20 07:13] LABS: CA 15-3 <5 U/mL (<32)
== END 2024-10-19 09:18 | disposition home or self-care (01) ==
LOC: ANHLAB 09:18
PROVIDERS: PCP Nurse Practitioner Family; Visit Provider Internal Medicine Hematology & Oncology
DX: C50.412 Malignant neoplasm of upper-outer quadrant of left female breast (principal); Z17.0 Estrogen receptor positive status [ER+]
CPT/HCPCS: 36415; 80053; 85025; 86300

== ENCOUNTER 2025-04-04 09:42 | Outpatient (CLI) | payer BC, SELFPAY ==
--- NOTE | ~2025-04-04 | MM_ITS ---
EXAMINATION: MM screening red BI w estephania HISTORY: Screening TECHNIQUE: Craniocaudal and mediolateral oblique 3-D tomosynthesis images were obtained and synthetic 2-D images were generated. CAD analysis was submitted and interpreted. COMPARISON: 10/04/2021 BREAST PARENCHYMAL COMPOSITION: The breasts are heterogeneously dense, which may obscure small masses. FINDINGS: There is no evidence of suspicious mass, calcification, or architectural distortion to suggest malignancy. There has been no suspicious interval change. IMPRESSION: 1. No mammographic evidence of malignancy. Recommend routine screening mammography in one year. BI-RADS Category 2: Benign finding(s) Reviewed, dictated and finalized at location Q. IMPRESSION: 1. No mammographic evidence of malignancy. Recommend routine screening mammogra phy in one year. BI-RADS Category 2: Benign finding(s)
--- OUTSIDE RECORDS SUMMARY | 2025-04-04 11:02 | XMS_ITS | Encounter Summary ---
Author Organization [facility] Address [address] [place] [address] Care Team Providers Care Sed Special Education Teacher Name Role Phone Ever Strong MD Unavailable Gloria Juárez NP Primary Care Provider [phone] Mike Jang MD Unavailable [phone] Lenard Purcell MD Unavailable [phone] Encounter Details Date Type Department Care Team (Latest Contact Info) Description 03/07/2025 Results Follow-Up [facility] Primary Care at [address] [address] Amy Johnson NP [address] [place] [address] [address] [place] [address] CT Abdomen Pelvis WO Contrast, Comprehensive metabolic panel, CBC with auto differential, Additional followed-up results: 3 Social History Tobacco Use Types Packs/Day Years Used Date Smoking Tobacco: Former Cigarettes Q uit: 1997 Smokeless Tobacco: Never PHQ-2 Answer Date Recorded PHQ-2 Total Score (If total score is 3 or more points, staff should administer the PHQ-9) 0 08/31/2024 Comments Unknown Sex and Gender Information Value Date Recorded Sex Assigned at Not on file 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 Gender Identity Female 09/23/2020 9:27 AM CDT Sexual Orientation Straight 09/23/2020 9: 27 AM CDT documented as of this encounter Plan of Treatment Not on file documented as of this encounter Results * Basic metabolic panel (03/10/2025 8:56 AM CDT) Sodium 137 135 - 145 mmol/L Potassium, pl 4.0 3.3 - 4.9 mmol/L [facility] Chloride 100 97 - 110 mmol/L [facility] CO2 26 22 - 32 mmol/L [facility] Anion gap 11 2 - 15 mmol/L [facility] BUN 9 6 - 25 mg/dL [facility] Creatinine 0.87 0.60 - 1.10 mg/dL [facility] Glucose 109 70 - 199 mg/dL [facility] Comment: Interpretive Data Fasting glucose >/= 126 [...] classification and Diagnosis of Diabetes Diabetes Care 2021; 46: S19-S40. Current interpretive data was last revised 2022. Calcium 9.0 8.5 - 10.3 mg/dL [facility] Blood 03/10/2025 8:56 AM CDT 03/10/2025 10:40 AM CDT Amy Johnson NP LAB BLOOD ORDERABLES Final Re sult [facility] [address] [facility] Department [place] [address] documented in this encounter Visit Diagnoses Diagnosis Low sodium levels- Primary Hyposmolality and/or hyponatremia documented in this encounter Additional Health Concerns Infection Onset Date Last Indicated Resolved Time COVID: Suspected 03/07/2025 03/07/2025 03/07/2025 10:08 AM CDT documented as of this encounter Care Teams Sed Special Education Teacher Relationship Specialty Start Date End Date Gloria Juárez NP [address] [facility] [address] [place] [address] PCP - General Family Medicine 12/17/23 Ever Strong MD Internal Medicine 10/13/23 Mike Jang MD [address] [facility] [address] [place] [address] Referring Physician Hematology 12/17/23 Lenard Purcell MD [address] [facility] [address] [place] [address] Referring Physician Obstetrics and Gynecology 12/17/23 documented as of this encounter
--- OUTSIDE RECORDS SUMMARY | 2025-04-04 11:02 | XMS_ITS | Encounter Summary ---
Author Organization [facility] Address [address] [place] [address] Care Team Providers Care Metal Storage Worker Name Role Phone Ever Strong MD Unavailable Gloria Juárez NP Primary Care Provider [phone] Mike Jang MD Unavailable [phone] Lenard Purcell MD Unavailable [phone] Encounter Details Date Type Department Care Team (Late st Contact Info) Description 03/10/2025 Results Follow-Up [facility] Primary Care at [address] [address] Amy Johnson NP [address] [place] [address] [address] [place] [address] Basic metabolic panel, eGFR Social History Tobacco Use Types Packs/Day Years Used Date Smoking Tobacco: Former Cigarettes Q uit: 1997 Smokeless Tobacco: Never PHQ-2 Answer Date Recorded PHQ-2 Total Score (If total score is 3 or more points, staff should administer the PHQ-9) 0 08/31/2024 Comments Unknown Sex and Gender Information Value Date Recorded Sex Assigned at Not on file 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 Gender Identity Female 09/23/2020 9:27 AM CDT Sexual Orientation Straight 09/23/2020 9: 27 AM CDT documented as of this encounter Plan of Treatment Not on file documented as of this encounter Visit Diagnoses Not on filedocumented in this encounter Care Teams Metal Storage Worker Relationship Specialty Start Date End Date Gloria Juárez NP [address] [facility] [address] [place], [place] [phone] PCP - General Family Medicine 12/17/23 Ever Strong MD Internal Medicine 10/13/23 Mike Jang MD [address] [facility] [address] [place] [address] Referring Physician Hematology 12/17/23 Lenard Purcell MD [address] [facility] [address] [place] [address] Referring Physician Obstetrics and Gynecology 12/17/23 documented as of this encounter
--- OUTSIDE RECORDS SUMMARY | 2025-04-04 11:02 | XMS_ITS | Clinical Summary ---
Author Organization [facility] [address] [facility] 5th [place] [address] Care Team Providers Care Cod Clerk Name Role Phone Ever Strong MD Unavailable Gloria Juárez NP Primary Care Provider [phone] Mike Jang MD Unavailable [phone] Lenard Purcell MD Unavailable [phone] Allergies No known active allergies Medications anastrozole (ARIMIDEX) 1 mg tablet TAKE 1 TABLET BY MOUTH DAILY 0 Active calcium carbonate (OS-EDGARD) 1,500 mg (600 mg of elemental calcium) tablet Take by mouth Active multivit-mineral- iron-lutein tablet Take by mouth Active potassium-calcium -magnes-manga (Emergen-C Electro Mix) [phone] mg powder in packet Take 1 packet by mouth daily Active Tremfya 100 mg/mL auto-injector subcutaneous syringe Inject under the skin 2 Active losartan (COZAAR) 25 mg tabletIndications :Hypertension, essential TAKE 1 TABLET(25 MG) BY MOUTH DAILY 90 tablet 1 5 Active fluocinolone (DERMA-SMOOTH/FS) 0.01 % oil 4 03/07/20 25 Discontinue d(Patient Reported) naproxen (NAPROSYN) 500 mg tabletIndications :Anti-inflammator y,Pain Take 1 tablet (500 mg total) by mouth 2 (two) times a day as needed for pain (pain) 180 tablet 5 03/07/20 25 Discontinue d(Patient Reported) ciprofloxacin (CIPRO) 500 mg tablet Take 1 tablet (500 mg total) by mouth 2 (two) times a day for 10 days 20 tablet 5 03/17/20 25 Active Problems Problem Noted Date Diagnosed Date Abnormal finding on breast imaging 03/07/2025 Invasive ductal carcinoma of left breast 025 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 03/07/2025 Fever and chills 03/07/2025 Assessment & Plan (03/07/2025 12:55 PM CDT): Orders: POC Influenza A/B, COVID-[address] Abdomen Pelvis WO Contrast; Future Urine culture Urine, clean voided; Future CBC with auto differential; Future Comprehensive metabolic panel; Future Hypertension, essential 12/17/2023 Assessment & Plan (08/31/2024 [...] Encounters Date Type Department Care Team Description 03/10/2025 8:55 AM CDT Lab [address] [address] Low sodium levels 03/10/2025 Results Follow-Up [facility] Primary Care at [address] [address] Amy Johnson NP Basic metabolic panel, eGFR 03/07/2025 10:55 AM CDT Lab [address] [address] Fever and chills; Left flank pain 03/07/2025 10:52 AM CDT - 03/07/2025 11:59 PM CDT Hospital Encounter [address] [address] Fever and chills; Left flank pain Discharge Disposition: Discharge to home or self care 03/07/2025 10:50 AM CDT - 03/07/2025 11:59 PM CDT Hospital Encounter [address] [address] Discharge Disposition: Discharge to home or self care 03/07/2025 10:00 AM CDT Office Visit [facility] Primary Care at [address] [address] Amy Johnson NP Fever and chills (Primary Dx); Left flank pain 03/07/2025 Results Follow-Up [facility] Primary Care at [address] [address] Abdomen Pelvis WO Contrast, Comprehensive metabolic panel, CBC with auto differential, Additional followed-up results: 3 from Last 3 Months Immunizations Immunization Administration Dates Next Due Influenza, Quadrivalent, Spl it, Intramuscular 05/22/2015 Influenza, Unspecified 06/22/2023(Deferr ed: Patient Refused),06/22/2022(Deferred: Patient Refused) Tdap 03/02/2023 Surgical History Surgery Date Site/Laterality Comments BARIATRIC SURGERY 12/06/02 OVARIAN CYST REMOVAL RENAL BIOPSY BREAST LUMPECTOMY BRACHIOPLASTY Bilateral BREAST BIOPSY Left Medical History Medical History Date Comments Cancer (HCC) 08/09/2019 Weight loss Hx of radiation therapy Breast cancer (HCC) Hypertension Family History Medical History Relation Name Comments Heart attack Brother Stu Heart disease Brother Stu Hypertension Father Dad Diabetes Mother mom Heart attack Mother mom Heart disease Mother mom Hypertension Mother mom Stroke Mother mom Diabetes Sister Estelle Relation Name Status Comments Brother Stu Father Dad Mother mom Sister Setelle Social History Tobacco Use Types Packs/Day Years Used Date Smoking Tobacco: Former Cigarettes Q uit: 1997 Smokeless Tobacco: Never Tobacco Cessation:Counseling Given: Not Answered PHQ-2 Answer Date Recorded PHQ-2 Total Score (If total score is 3 or more points, staff should administer the PHQ-9) 0 08/31/2024 Comments Unknown Sex and Gender Information Value Date Recorded Sex Assigned at Not on file 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[employer] Gender Identity Female 09/23/2020 9:27 AM CDT Sexual Orientation Straight 09/23/2020 9: 27 AM CDT Obstetrics History Last Filed Vital Signs Vital Sign Reading Time Taken Comments Blood Pressure 120/82 03/07/2025 9:48 AM CDT Pulse 89 03/07/2025 9:48 AM CDT Temperature 38.3 C (101 F) 03/07/2025 9:48 AM CDT Respiratory Rate 18 03/07/2025 9:48 AM CDT Oxygen Saturation 94% 03/07/2025 9:48 AM CDT Inhaled Oxygen Concentration - - Weight 99.8 kg (220 lb) 03/07/2025 9:48 AM CDT Height 162.6 cm (5' 4) 03/07/2025 9:48 AM CDT Body Mass Index 37.76 03/07/2025 9:48 AM CDT Plan of Treatment Health Maintenance Due Date Last Done Comments Hepatitis B Screening 10/31/1979 Pneumococcal vaccine <65 (1 of 2 - PCV) 1980 Zoster Vaccine (1 of 2) 1980 Covid-19 Vaccine (3 - Pfizer risk series) 01/24/2021 12/27/2020, 12/06/2020 Influenza Vaccine (#1) 2025 05/22/2015 Breast Cancer Screening-Mammogram 04/06/2025 01/07/2024, 10/28/2022, 10/28/2022, Additional history exists Postponed from 01/06/2025 (Patient declined, but will receive in the future) Depression Screening 08/31/2025 08/31/2024, 01/15/2024, 12/17/2023 Regular Well Visit/Exam 18-64 08/31/2025 08/31/2024, 12/27/2021, 11/02/2020 Cervical Cancer Screening 09/02/20252024, 05/22/2023, 05/20/2023 Colon Cancer Screening-Colonoscopy 11/03/2027 11/02/2017 DTaP/Tdap/Td Vaccine (2 - Td or Tdap) 03/02/2033 03/02/2023 Hepatitis C Screening Completed 08/31/2024 Procedures Procedure Name Priority Date/Time Associated Diagnosis Comments EGFR Routine 03/10/2025 8:56 AM CDT Low sodium levels BASIC METABOLIC PANEL Routine 03/10/2025 8:56 AM CDT Low sodium levels POCT URINALYSIS DIPSTICK Routine 03/07/2025 11:08 AM CDT Left flank pain EGFR STAT 03/07/2025 11:01 AM CDT Fever and chills Left flank pain DIFFERENTIAL AUTO STAT 03/07/2025 11: 01 AM CDT Fever and chills Left flank pain CBC WITH AUTO DIFFERENTIAL STAT 03/07/2025 11:01 AM CDT Fever and chills Left flank pain COMPREHENSIVE METABOLIC PANEL STAT 03/07/2025 11:01 AM CDT Fever and chills Left flank pain CT ABDOMEN PELVIS WO CONTRAST Schedule ANNIKA, Read ANNIKA (Appt Today, Awaiting Results) 03/07/2025 10:56 AM CDT Fever and chills Left flank pain URINE CULTURE Routine 03/07/2025 10:40 AM CDT Fever and chills Left flank pain POC INFLUENZA A/B, COVID-19 ANTIGEN Routine 03/07/2025 10:07 AM CDT Fever and chills HM PAP SMEAR WITH HPV Routine 09/02/2024 9:20 AM CDT HEPATITIS C ANTIBODY Routine 08/31/2024 8:44 AM CDT Encounter for hepatitis C screening test for low risk patient DIAGNOSTIC MAMMOGRAM BILATERAL W HARRIS Schedule Routine, Read Routine (OP Routine) 01/07/2024 10:11 AM CDT COLONOSCOPY Routine 11/02/2017 from Last 3 Months or Most Recently Relevant to Health Maintenance Results * eGFR (03/10/2025 8:56 AM CDT) eGFR 75 >=60 mL/min/1. 73 m2 Comment: Interpretive Data [...] interpretive data was last reviewed 2021. Blood 03/10/2025 8:56 AM CDT 03/10/2025 10:40 AM CDT us Amy Johnson NP LAB BLOOD ORDERABLES Final Re sult [facility] [address] [place] [address] * Basic metabolic panel (03/10/2025 8:56 AM CDT) Sodium 137 135 - 145 mmol/L Potassium, pl 4.0 3.3 - 4.9 mmol/L [facility] Chloride 100 97 - 110 mmol/L [facility] CO2 26 22 - 32 mmol/L [facility] Anion gap 11 2 - 15 mmol/L [facility] BUN 9 6 - 25 mg/dL [facility] Creatinine 0.87 0.60 - 1.10 mg/dL [facility] Glucose 109 70 - 199 mg/dL [facility] Comment: Interpretive Data Fasting glucose >/= 126 [...] 2022. Calcium 9.0 8.5 - 10.3 mg/dL [facility] Blood 03/10/2025 8:56 AM CDT 03/10/2025 10:40 AM CDT Amy Johnson NP LAB BLOOD ORDERABLES Final Re sult [facility] [address] Department of Laboratories [place], [place] [id number] * (ABNORMAL) POCT urinalysis dipstick (03/07/2025 11:08 AM CDT) Glucose, ur, POC Negative Negative Bilirubin, ur, POC Negative Negative Ketones, ur, POC Negative Negative Specific [place], POC 1.010 1.003 - 1.030 Blood, ur, POC Moderate(A) Negative pH, ur, POC 7.0 5.0 - 8.0 Protein, ur, POC 30.(A) Negative Urobilinogen, urine, POC 1.0 0.2 - 1.0 mg/dL Nitrite, ur, POC Negative Negative Leukocytes, ur, POC Trace(A) Negative Lot Number [id number] Urine 03/07/2025 11:0 8 AM CDT Amy Johnson DIRECTOR PR[facility] POINT OF CARE TEST ORDERABLES Final Result * eGFR (03/07/2025 11:01 AM CDT) Pathologist [facility] eGFR 78 >=60 mL/min/1. 73 m2 Comment: Interpretive Data [...] interpretive data was last reviewed 2021. Blood 03/07/2025 11:0 1 AM CDT 03/07/2025 1:51 PM CDT us Amy Johnson NP LAB BLOOD ORDERABLES Final [facility] [address] [place] [address] * (ABNORMAL) Differential, auto (03/07/2025 11:01 AM CDT) Pathologist [facility] Neutrophil abs 8.72(H) 1.50 - 6.50 K/cumm Imm gran abs 0.07 0.00 - 0.10 K/cumm [facility] Lymphocyte abs 0.49(L) 0.80 - 3.30 K/cumm [facility] Monocyte abs 0.61 0.20 - 0.80 K/cumm [facility] Eosinophil abs 0.03 0.00 - 0.50 K/cumm [facility] Basophil abs 0.04 0.00 - 0.10 K/cumm [facility] Neutrophil pct 87.6 % [facility] Comment: Interpretive Data Percent cell count reference ranges are not reported, since discordance with absolute values may lead to misinterpretation of CBC data. Current Interpretive Data was last revised on 2017. Imm gran pct 0.7 % [facility] Comment: Interpretive Data Percent cell count reference ranges are not reported, since discordance with absolute values may lead to misinterpretation of CBC data. Current Interpretive Data was last revised on 2017. Lymphocyte pct 4.9 % [facility] Comment: Interpretive Data Percent cell count reference ranges are not reported, since discordance with absolute values may lead to misinterpretation of CBC data. Current Interpretive Data was last revised on 2017. Monocyte pct 6.1 % [facility] Comment: Interpretive Data Percent cell count reference ranges are not reported, since discordance with absolute values may lead to misinterpretation of CBC data. Current Interpretive Data was last revised on 2017. Eosinophil pct 0.3 % [facility] Comment: Interpretive Data Percent cell count reference ranges are not reported, since discordance with absolute values may lead to misinterpretation of CBC data. Current Interpretive Data was last revised on 2017. Basophil pct 0.4 % [facility] Comment: Interpretive Data Percent cell count reference ranges are not reported, since discordance with absolute values may lead to misinterpretation of CBC data. Current Interpretive Data was last revised on 2017. Blood 03/07/2025 11:0 1 AM CDT 03/07/2025 1:51 PM CDT Amy Johnson NP LAB BLOOD ORDERABLES Final Re sult [facility] [address] [place] [address] * (ABNORMAL) CBC with auto differential (03/07/2025 11:01 AM CDT) WBC 9.96(H) 3.80 - 9.90 K/cumm Hgb 13.6 11.9 - 15.5 g/dL [facility] Hct 41.7 35.6 - 45.5 % [facility] Plt 222 150 - 400 K/cumm [facility] MPV 10.9 9.1 - 12.3 fL [facility] RBC 4.38 3.90 - 5.20 M/cumm [facility] MCV 95.2 81.3 - 96.4 fL [facility] MCH 31.1 27.1 - 33.3 pg [facility] MCHC 32.6 32.3 - 35.7 g/dL [facility] RDW CV 14.5 11.1 - 14.9 % [facility] RDW SD 50.4(H) 35.7 - 48.1 fL [facility] NRBC abs 0.00 0.00 - 0.01 K/cumm [facility] Blood 03/07/2025 11:0 1 AM CDT 03/07/2025 1:51 PM CDT Amy Johnson NP LAB BLOOD ORDERABLES Final Re sult [facility] [address] [place] [address] * (ABNORMAL) Comprehensive metabolic panel (03/07/2025 11:01 AM CDT) Sodium 129(L) 135 - 145 mmol/L Potassium, pl 4.0 3.3 - 4.9 mmol/L [facility] Chloride 95(L) 97 - 110 mmol/L [facility] CO2 24 22 - 32 mmol/L [facility] Anion gap 10 2 - 15 mmol/L [facility] BUN 11 6 - 25 mg/dL [facility] Creatinine 0.84 0.60 - 1.10 mg/dL [facility] Glucose 124 70 - 199 mg/dL [facility] Comment: Interpretive Data Fasting glucose >/= 126 [...] interpretive data was last revised 2022. Calcium 8.9 8.5 - 10.3 mg/dL [facility] Bilirubin, total 0.4 0.1 - 1.2 mg/dL [facility] Protein, pl 7.0 6.5 - 8.5 g/dL [facility] Albumin 3.6 3.5 - 5.0 g/dL [facility] Alk phos 64 40 - 130 Units/L [facility] ALT 16 7 - 45 Units/L [facility] AST 24 10 - 45 Units/L [facility] Blood 03/07/2025 11:0 1 AM CDT 03/07/2025 1:51 PM CDT us Amy Johnson NP LAB BLOOD ORDERABLES Final Re sult [facility] [address] [place] [address] * CT Abdomen Pelvis WO Contrast (03/07/2025 10:56 AM CDT) Anatomical Region Laterality Modality Body N/A Computed Tomogra phy 03/07/2025 4:18 PM CDT Narrative 03/07/2025 4:30 PM CDT EXAM DESCRIPTION: CT ABDOMEN PELVIS WO CONTRAST REASON FOR STUDY: Abdominal pain. Left flank pain and chills since Thursday. Hematuria. TECHNIQUE: CT scan of the abdomen and pelvis performed without intravenous and without oral contrast using helical scanning technique. Reconstructed coronal and sagittal MPR images reviewed. All images stored on PACS. Automated exposure control was used as a dose optimization technique for this examination. COMPARISON: CT biopsy from 10/16/2011 FINDINGS: The sensitivity for detection of visceral lesions is diminished without the use of intravenous contrast. LOWER CHEST: No significant pulmonary abnormalities. No pleural effusion. LIVER: Hepatic steatosis. No focal lesions within the limitations of a noncontrast exam. GALLBLADDER: No calcified gallstones. BILE DUCTS: No intrahepatic or extrahepatic ductal dilatation. SPLEEN: Normal size. No focal lesions. PANCREAS: No masses. No adjacent inflammation or peripancreatic fluid collections. No pancreatic ductal dilatation. ADRENALS: Normal. KIDNEYS/URINARY TRACT: No identified significant cystic or solid masses. No stones. No hydronephrosis or hydroureter. Urinary bladder is unremarkable. GI: Postoperative change from presumed prior gastric bypass. No dilated loops of bowel to suggest obstruction. Normal appendix. PERITONEUM: No ascites or free air. RETROPERITONEUM: No mass or lymphadenopathy. REPRODUCTIVE: There is a 3.3 cm left ovarian lesion. VASCULATURE: Atherosclerotic calcification of the abdominal aorta without aneurysm. MUSCULOSKELETAL: Bilateral pars defects at L5 with associated grade 2 anterolisthesis of L5 on S1. Mild diffuse thoracolumbar spondylosis. OTHER: Postoperative change in the anterior abdominal wall. There is a 4.4 cm fat containing hernia along the inferior margin of bruno. IMPRESSION: 1. No definite abnormality to explain the patient's symptoms. 2. No urolithiasis or hydronephrosis. 3. Left ovarian lesion measuring 3.3 cm. Follow-up pelvic ultrasound is recommended. THIS IS AN ELECTRONICALLY VERIFIED FINAL REPORT 03/07/2025 4:30 PM - Electronically signed by Bill HARDING T: Report ID: [id number] Reading Location: [id number] Procedure Note Bill Adams MD - 03/07/2025 EXAM DESCRIPTION: CT ABDOMEN PELVIS WO CONTRAST REASON FOR STUDY: Abdominal pain. Left flank pain and chills sinceSunday. Hematuria. TECHNIQUE: CT scan of the abdomen and pelvis performed without intravenousand without oral contrast using helical scanning technique. Reconstructed coronal and sagittal MPR images reviewed. All images stored on PACS.Automated exposure control was used as a dose optimization technique for this examination. COMPARISON: CT biopsy from 10/16/2011 FINDINGS: The sensitivity for detection of visceral lesions is diminished withoutthe use of intravenous contrast. LOWER CHEST: No significant pulmonary abnormalities. No pleuraleffusion. LIVER: Hepatic steatosis. No focal lesions within the limitations of a noncontrast exam. GALLBLADDER: No calcified gallstones. BILE DUCTS: No intrahepatic or extrahepatic ductal dilatation. SPLEEN: Normal size. No focal lesions. PANCREAS: No masses. No adjacent inflammation or peripancreatic fluid collections. No pancreatic ductal dilatation. ADRENALS: Normal. KIDNEYS/URINARY TRACT: No identified significant cystic or solid masses.No stones. No hydronephrosis or hydroureter. Urinary bladder isunremarkable. GI: Postoperative change from presumed prior gastric bypass. No dilated loops of bowel to suggest obstruction. Normal appendix. PERITONEUM: No ascites or free air. RETROPERITONEUM: No mass or lymphadenopathy. REPRODUCTIVE: There is a 3.3 cm left ovarian lesion. VASCULATURE: Atherosclerotic calcification of the abdominal aortawithout aneurysm. MUSCULOSKELETAL: Bilateral pars defects at L5 with associated grade 2 anterolisthesis of L5 on S1. Mild diffuse thoracolumbar spondylosis. OTHER: Postoperative change in the anterior abdominal wall. There is a4.4 cm fat containing hernia along the inferior margin of bruno. IMPRESSION: 1. No definite abnormality to explain the patient's symptoms. 2. No urolithiasis or hydronephrosis. 3. Left ovarian lesion measuring 3.3 cm. Follow-up pelvic ultrasound is recommended. THIS IS AN ELECTRONICALLY VERIFIED FINAL REPORT 03/07/2025 4:30 PM - Electronically signed by Bill Adams M.D. LB T: Report ID: [id number] Reading Location: [place] [address] Amy Johnson NP IMG CT PROCEDURES Final Resul t * Urine culture Urine, clean voided (03/07/2025 10:40 AM CDT) Report Final Report: Less than 100,000 colonies/mL (clinically insignificant growth based on current clinical standards) Comment:Testing performed by : [facility], [address], [place]., [address] Organism (CLINICALLY INSIGNIFICANT GROWTH [facility] Urine, clean voided 03/07/2025 10:40 AM CDT 03/07/2025 6:13 PM CDT Narrative URIAH TY - 03/09/2025 9:45 AM CDT Testing performed by [facility] ([phone]) Amy Johnson NP LAB MICROBIOLOGY - GENERAL OR DERABLES Final Result [facility] [address] [place] [address] * POC Influenza A/B, COVID-19 antigen (03/07/2025 10:07 AM CDT) Influenza A Ag, POC Negative Negative [facility] Influenza B Ag, POC Negative Negative [facility] PCP FM EDW COVID-19 Ag POC Presumptive Negative Presumptive Negative, Invalid [facility] PCP FM EDW Nasal 03/07/2025 10:0 7 AM CDT Amy Johnson NP POINT OF CARE TEST ORDERABLES Edited Result - Final [facility] PCP EDW [address] * HM PAP SMEAR WITH HPV (09/02/2024 9:20 AM CDT) Scribed Pap Smear w/HPV Normal Lenard Moncada MD HEALTH MAINTENANCE Final Result * Hepatitis C antibody Blood (08/31/2024 8:44 AM CDT) Hep C Ab Nonreactive Nonreactive Comment: Interpretive [...] 7:06 PM CDT Gloria Juárez NP LAB MICROBIOLOGY - GENERAL ORDER ELENA Final Result [facility] [address] Department of Laboratories [place], [place] [id number] * Diagnostic Mammogram Bilateral W Harris (01/07/2024 [...] Maintenance Insurance [employer] [place] [address] [place] [address] [place] [address] [place] [address] [place] [facility] [place] [facility] [place] Care Teams Cod Clerk Relationship Specialty Start Date End Date Gloria Juárez NP [address] [address] PCP - General Family Medicine 12/17/23 Ever Strong MD Internal Medicine 10/13/23 Mike Jang MD [address] [facility] [address] [place] [address] Referring Physician Hematology 12/17/23 Lenard Purcell MD [address] [facility] [address] [place] [address] Referring Physician Obstetrics and Gynecology 12/17/23
--- OUTSIDE RECORDS SUMMARY | 2025-04-04 11:02 | XMS_ITS | Clinical Summary ---
Author Organization [facility] Erlin Benavideznorah Address [address] [facility] [place] [address] Care Team Providers Care Patient Accounts Manager Name Role Phone Unavailable Primary Care Provider Unavailabl e Allergies No known active allergies Medications calcium as carbonate (CALTRATE) 1,500 mg (600 mg elemental) Tablet Take by mouth. Active multivit-min/iron /folic acid/K (BARIATRIC MULTIVITAMINS ORAL) Take by mouth. Activ e potassium-calcium -magnes-manga (Emergen-C Electro Mix) 076-960-129-2 mg Powder in Packet Take 1 Packet [...] Encounters Date Type Department Care Team Description 03/28/2025 External Device Data [facility] ABSTRACTION Provider, Abstract 02/28/2025 External Device Data [facility] Provider, Abstract 02/21/2025 External Device Data [facility] Provider, Abstract 02/07/2025 External Device Data [facility] Provider, Abstract 02/07/2025 External Device Data [facility] Provider, Abstract 01/31/2025 External Device Data [facility] Provider, Abstract 01/25/2025 External Device Data [facility]STRACTION Provider, Abstract 01/04/2025 External Device Data [facility]STRACTION Provider, Abstract 01/03/2025 External Device Data [facility] ABSTRACTION Provider, Abstract [...] 0 08/31/1979 - 08/30/1982 Smokeless Tobacco: Never Tobacco Cessation:Counseling Given: Not Answered Alcohol Use Standard Drinks/Week Comments Yes 0 (1 standard drink = 0.6 oz pur e alcohol) Comments No Sex and Gender Information Value Date Recorded Sex Assigned at Not on file Legal Sex Female 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 Gender Identity Not on file Sexual Orientation Not on file Last Filed Vital Signs Vital Sign Reading Time Taken Comments Blood Pressure 156/90 10/28/2024 10:06 AM CDT Pulse 77 10/28/2024 10:04 AM CDT Temperature 36.7 C (98.1 F) 10/28/2024 10:04 AM CDT Respiratory Rate 16 10/28/2024 10:04 AM CDT Oxygen Saturation 95% 10/28/2024 10:04 AM CDT Inhaled Oxygen Concentration - - Weight 102 kg (224 lb 12.8 oz) 10/28/2024 10:04 AM CDT Height 162.6 cm (5' 4) 12/20/2021 11:11 AM CDT Body Mass Index 38.59 12/20/2021 11:11 AM CDT Plan of Treatment Upcoming Encounters Date Type Department Care Team (Late st Contact Info) Description 05/05/2025 8:45 AM TEAM PRIMARY CARE PHYSICIAN Office Visit [facility] Oncology and Hematology - [place] [address] [place] [address] Mike Jang MD [address] [place] [address] Health Maintenance Due Date Last Done Comments Pre-Diabetes and Diabetes Screening 1961 DTAP/TDAP/TD VACCINES (1 - Tdap) 1980 HPV/Cotest (21-29) 1982 CERVICAL CANCER SCREENING 10/31/1991 HPV/Cotest (30-65) 10/31/1991 PAP SMEAR 10/31/1991 FIT-DNA Q 3 years 2006 FIT/FOBT Q 1 year 2006 Flex Sig/CT Colonography Q 5 years 2006 ZOSTER VACCINE (1 of 2) 10/31/2011 BREAST CANCER SCREENING 01/06/2025 01/07/20 24, 10/12/2020, 06/01/2020 INFLUENZA VACCINE (#1) 2025 05/22/2015 COLORECTAL SCREENING 11/03/2027 11/02/2017 Colorectal Cancer Screening [...] Most Recently Relevant to Health Maintenance Insurance [facility] BLUE PREFERRED [facility] [employer] PREFERRED HEALTH ADMINISTRATION
--- OUTSIDE RECORDS SUMMARY | 2025-04-04 11:02 | XMS_ITS | Encounter Summary ---
Author Organization [facility] Address [address] [place] [address] Care Team Providers Care Manager Agricultural Name Role Phone Ever Strong MD Primary Care Provider [phone] Encounter Details Date Type Department Care Team (Late Contact Info) Description 08/31/2019 Chart Note [facility] Radiation Therapy [address] [place] [phone] [place] [address] [place] [address] Social History Tobacco Use Types Packs/Day Years Used Date Smoking Tobacco: Former Cigarettes 0.5 3 0 08/31/1979 - 08/30/1982 Smokeless Tobacco: Never Alcohol Use Standard Drinks/Week Comments Yes 0 (1 standard drink = 0.6 oz pur e alcohol) Comments No Sex and Gender Information Value Date Recorded Sex Assigned at Not on file 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 Oncology and Hematology - [place] [address] [facility] [address] [place] [address] Mike Jang MD [address] [facility] [address] [place] [phone] documented as of this encounter Visit Diagnoses Not on filedocumented in this encounter Care Teams Manager Agricultural Relationship Specialty Start Date End Date Ever Strong MD [address] [phone] PCP - General Internal Medicine 08/24/19 10/27/24 documented as of this encounter
== END 2025-04-04 09:43 | disposition home or self-care (01) ==
LOC: ANHFOHIMG 09:44
PROVIDERS: PCP Nurse Practitioner Family; Visit Provider Internal Medicine Hematology & Oncology
DX: Z12.31 Encounter for screening mammogram for malignant neoplasm of breast (principal)
CPT/HCPCS: 77063; 77067